=== PATIENT | male | born 1955 | race Caucasian/White ===

== ENCOUNTER 2016-05-08 11:08 | Inpatient (IN) ==
--- NOTE | 2016-05-08 12:09 | Emergency Department Note ---
Disposition Clinical Impression: Anasarca, Hyperglycemia Disposition: Admitted As Inpatient Condition: Good Forms: Work/School Release, ED Satisfaction Letter Abdominal Pain HPI - General Chief Complaint: ED General Medical Stated Complaint: Retaing Fluid Time Seen by Provider: 05/08/16 11:17 Source: patient, family Mode of arrival: ambulatory Limitations: no limitations Nursing Notes Reviewed: Yes Vital Signs Reviewed: Yes - History of Present Illness Pt Subjective Complaint: abdominal pain Onset (ago): week(s) (1) Consistency: constant Location: diffuse Pain Scale: 9 Quality: fullness Radiation: none Migration to: no migration Improves with: nothing Worsens with: rest Context: history of similar episodes Associated symptoms: Reports: other (leg and scrotal edema) Treatments prior to arrival: none - Related Data Previous Rx's Medication Instructions Recorded Sulfamethoxazole/Trimeth DS 1 each PO BID #20 tablet 01/26/16 [Bactrim DS] Allergies Allergy/AdvReac Type Severity Reaction Status Date / Time Antihistamines - Alkylamine Allergy Cough Verified 05/08/16 11:10 codeine Allergy Nausea Verified 05/08/16 11:10 fluticasone [From Flonase] Allergy Nose Bleed Verified 05/08/16 11:10 nitroglycerin Allergy Headache Verified 05/08/16 11:10 [From Nitrostat] rofecoxib [From Vioxx] Allergy Rash Verified 05/08/16 11:10 All systems ED: reviewed and negative except as stated. Constitutional: Denies: fever, chills Respiratory: Denies: cough Gastrointestinal: Denies: vomiting, diarrhea Abdominal Pain PMH - Past Medical History Medical history: Reports: arthritis, cirrhosis, CHF, coronary artery disease, diabetes, GERD, hypertension, liver disease, other Male Surgical History: Reports: cholecystectomy, knee replacement Psychiatric history: Reports: anxiety, depression - Social History Smoking status: Former smoker Alcohol use: Reports: none Drug use: Reports: none Physical Exam - General Limitations: no limitations General appearance: alert, in no apparent distress - Head Head exam: atraumatic, normocephalic, normal inspection - Eye Eye exam: Present: normal appearance, PERRL, EOMI - ENT ENT exam: normal exam, normal oropharynx, mucous membranes moist - Neck Neck exam: Present: normal inspection, full ROM, trachea midline - Respiratory Respiratory exam: Present: normal lung sounds bilaterally - Cardiovascular Cardiovascular exam: Present: regular rate, normal rhythm, normal heart sounds - Abdominal Exam Abdominal exam: Present: distention, normal bowel sounds Abdominal tenderness: Present: diffuse, mild - Expanded Lower Extremity Exam Lower leg exam: Present: other (severe bilat edema with unna boots) - Neurological Exam Neurological exam: Present: alert, oriented X3 - Psychiatric Psychiatric exam: Present: normal affect, normal mood Course Vital Signs Temperature 97.8 F 05/08/16 11:10 Pulse Rate 97 05/08/16 11:10 Respiratory Rate 24 05/08/16 11:10 Blood Pressure 119/69 05/08/16 11:10 O2 Sat by Pulse Oximetry 94 L 05/08/16 11:10 Temperature 97.8 F 05/08/16 11:10 Pulse Rate 97 05/08/16 11:10 Respiratory Rate 24 05/08/16 11:10 Blood Pressure 119/69 05/08/16 11:10 O2 Sat by Pulse Oximetry 94 L 05/08/16 11:10 Oxygen Delivery Oxygen Delivery Room Air Abdominal Pain - Differential Diagnosis Differential Diagnosis: Likely: abdominal pain non-specific, diverticulitis, diverticulosis, endometriosis, gastroenteritis, ischemic bowel, pancreatitis, small bowel obstruction - Medical Records Medical records reviewed: Yes I reviewed the patient's medical records. - Lab Data Lab results reviewed: Yes I reviewed the patient's lab results. Result diagrams: 05/08/16 12:03 05/08/16 12:03 Lab Results 05/08/16 05/08/16 05/08/16 Range/Units 12:03 12:03 12:03 WBC 5.1 (4.3-11.1) K/mcL RBC 2.96 L (4.19-5.50) M/mcL Hgb 8.2 L (12.9-16.9) g/dL Hct 25.1 L (37.5-50.1) % MCV 84.8 (83.0-100.0) fL MCH 27.7 L (28.0-33.3) pg MCHC 32.7 (31.6-35.5) g/dL RDW 15.9 H (11.5-14.5) % Plt Count 120 L (140-400) K/mcL MPV 10.3 (9.4-12.4) fL Immature Gran % 1.0 (0-4) % Seg Neutrophils % 79.2 % Lymphocytes % 6.3 % Monocytes % 11.7 % Eosinophils % 1.4 % Basophils % 0.4 % Neutrophils # 4.0 (1.6-8.9) K/mcL Lymphocytes # 0.3 L (0.6-4.6) K/mcL Monocytes # 0.6 (0.0-1.3) K/mcL Eosinophils # 0.1 (0.0-0.6) K/mcL Basophils # 0.0 (0.0-0.2) K/mcL Immature Plt Fraction 3.1 (1.1-6.1) % PT 16.0 H (9.4-12.1) Seconds INR 1.5 APTT 30.3 (26.0-36.0) Seconds Sodium 118 L* (136-145) mEq/L Potassium 5.0 H (3.5-4.5) mEq/L Chloride 89 L (98-109) mEq/L Carbon Dioxide 21 (19-29) mEq/L BUN 27 H (8-26) mg/dL Creatinine 1.64 H (0.72-1.25) mg/dL Est GFR ( Amer) 52 L (> 60) Est GFR (Non-Af Amer) 43 L (> 60) BUN/Creatinine Ratio 16 (6-26) Glucose 708 H* (70-99) mg/dL Calculated Osmolality 285 (280-300) Calcium 8.8 (8.6-10.8) mg/dL Total Bilirubin 2.2 H (0.2-1.2) mg/dL Direct Bilirubin 1.2 H (0.0-0.5) mg/dL Indirect Bilirubin 1.0 (0.0-1.2) mg/dL AST 33 (5-34) Units/L ALT 33 (0-55) Units/L Alkaline Phosphatase 169 H (38-126) Units/L B-Natriuretic Peptide (0-100) pg/mL Serum Total Protein 7.2 (6.0-8.3) g/dL Albumin 2.3 L (3.5-5.0) g/dL Globulin 4.9 H (2.4-3.5) g/dL Albumin/Globulin Ratio 0.5 L (1.1-2.2) Amylase 45 (25-125) Units/L Lipase 102 H (8-78) Units/L Urine Color (Yellow) Urine Clarity (Clear) Urine pH (5.0-8.0) pH Units Ur Specific Leonard (1.010-1.025) Urine Protein (Neg-Trace) mg/dL Urine Glucose (UA) (Normal) mg/dL Urine Ketones (Negative) mg/dL Urine Blood (Negative) Urine Nitrite (Negative) Urine Bilirubin (Negative) Urine Urobilinogen (Normal) mg/dL Ur Leukocyte Esterase (Negative) Urine Microscopic RBC (0-3) per hpf Urine Microscopic WBC (0-3) per hpf Ur Squamous Epith Cells (None-Few) per lpf Urine Bacteria (None-Few) per hpf Hyaline Casts (None-Few) per lpf Urine Yeast (None Seen) per hpf Ur Culture Indicated? (NO) 05/08/16 05/08/16 Range/Units 12:03 12:06 WBC (4.3-11.1) K/mcL RBC (4.19-5.50) M/mcL Hgb (12.9-16.9) g/dL Hct (37.5-50.1) % MCV (83.0-100.0) fL MCH (28.0-33.3) pg MCHC (31.6-35.5) g/dL RDW (11.5-14.5) % Plt Count (140-400) K/mcL MPV (9.4-12.4) fL Immature Gran % (0-4) % Seg Neutrophils % % Lymphocytes % % Monocytes % % Eosinophils % % Basophils % % Neutrophils # (1.6-8.9) K/mcL Lymphocytes # (0.6-4.6) K/mcL Monocytes # (0.0-1.3) K/mcL Eosinophils # (0.0-0.6) K/mcL Basophils # (0.0-0.2) K/mcL Immature Plt Fraction (1.1-6.1) % PT (9.4-12.1) Seconds INR APTT (26.0-36.0) Seconds Sodium (136-145) mEq/L Potassium (3.5-4.5) mEq/L Chloride (98-109) mEq/L Carbon Dioxide (19-29) mEq/L BUN (8-26) mg/dL Creatinine (0.72-1.25) mg/dL Est GFR ( Amer) (> 60) Est GFR (Non-Af Amer) (> 60) BUN/Creatinine Ratio (6-26) Glucose (70-99) mg/dL Calculated Osmolality (280-300) Calcium (8.6-10.8) mg/dL Total Bilirubin (0.2-1.2) mg/dL Direct Bilirubin (0.0-0.5) mg/dL Indirect Bilirubin (0.0-1.2) mg/dL AST (5-34) Units/L ALT (0-55) Units/L Alkaline Phosphatase (38-126) Units/L B-Natriuretic Peptide 112 H (0-100) pg/mL Serum Total Protein (6.0-8.3) g/dL Albumin (3.5-5.0) g/dL Globulin (2.4-3.5) g/dL Albumin/Globulin Ratio (1.1-2.2) Amylase (25-125) Units/L Lipase (8-78) Units/L Urine Color Yellow (Yellow) Urine Clarity Clear (Clear) Urine pH 6.0 (5.0-8.0) pH Units Ur Specific Leonard 1.030 H (1.010-1.025) Urine Protein Negative (Neg-Trace) mg/dL Urine Glucose (UA) >=1000 H (Normal) mg/dL Urine Ketones Negative (Negative) mg/dL Urine Blood Negative (Negative) Urine Nitrite Negative (Negative) Urine Bilirubin Negative (Negative) Urine Urobilinogen Normal (Normal) mg/dL Ur Leukocyte Esterase Small H (Negative) Urine Microscopic RBC 0-3 (0-3) per hpf Urine Microscopic WBC 30-50 H (0-3) per hpf Ur Squamous Epith Cells Moderate H (None-Few) per lpf Urine Bacteria None Seen (None-Few) per hpf Hyaline Casts None Seen (None-Few) per lpf Urine Yeast Few H (None Seen) per hpf Ur Culture Indicated? YES A (NO) - Radiology Data Radiology results reviewed: Yes I reviewed the patient's radiology results.
[2016-05-08 12:18] LABS: Bilirubin,Urine Negative (Negative); Blood,Urine Negative (Negative); Clarity,Urine Clear (Clear); Color,Urine Yellow (Yellow); Glucose,Urine (UA) >=1000 mg/dL (Normal); Ketones,Urine Negative (Negative); Leukocyte Esterase,Urine Small (Negative); Nitrite,Urine Negative (Negative); Protein,Urine Negative (Neg-Trace); Urobilinogen,Urine Normal (Normal)
[2016-05-08 12:21] LABS: Bacteria,Urine None Seen per hpf (None-Few); Hyaline Casts,Urine None Seen per lpf (None-Few); RBC,Urine 0-3 per hpf (0-3); Squamous Epithelial Cell,Urine Moderate per lpf (None-Few); WBC,Urine 30-50 per hpf (0-3)
[2016-05-08 12:24] LABS: Basophils % 0.4 %; Eosinophils # 0.1 K/mcL (0.0-0.6); Eosinophils % 1.4 %; Hematocrit 25.1 % (37.5-50.1); Hemoglobin 8.2 g/dL (12.9-16.9); Immature Platelets 3.1 % (1.1-6.1); Lymphocytes # 0.3 K/mcL (0.6-4.6); Lymphocytes % 6.3 %; Mean Corpuscular HGB Conc 32.7 g/dL (31.6-35.5); Mean Corpuscular Hemoglobin 27.7 pg (28.0-33.3); Mean Corpuscular Volume 84.8 fL (83.0-100.0); Mean Platelet Volume 10.3 fL (9.4-12.4); Monocytes # 0.6 K/mcL (0.0-1.3); Monocytes % 11.7 %; Platelet Count 120 K/mcL (140-400); Red Blood Count 2.96 M/mcL (4.19-5.50); Red Cell Distribution Width 15.9 % (11.5-14.5); Segmented Neutrophils % 79.2 %
[2016-05-08 12:39] LABS: Yeast,Urine Few per hpf (None Seen)
[2016-05-08 12:40] LABS: INR 1.5
[2016-05-08 12:43] LABS: Activated Partial Thrombo Time 30.3 Seconds (26.0-36.0)
[2016-05-08 12:44] LABS: Albumin 2.3 g/dL (3.5-5.0); Albumin/Globulin Ratio 0.5 (1.1-2.2); Bilirubin,Direct 1.2 mg/dL (0.0-0.5); Bilirubin,Total 2.2 mg/dL (0.2-1.2); Calcium 8.8 mg/dL (8.6-10.8); Globulin 4.9 g/dL (2.4-3.5); Total Protein 7.2 g/dL (6.0-8.3)
[2016-05-08] MEDS ORDERED: Insulin Human Regular 10 UNIT in 0.9 % Sodium Chloride 10 ML IV ONE (13:00)
[2016-05-08] MEDS ORDERED: Insulin LISPRO 300 UNITS/3 ML VIAL SQ STA (14:27)
[2016-05-08] MEDS ORDERED: Insulin Regular, Human 100 UNIT/ML IV PRN (16:29)
[2016-05-08] MEDS ORDERED: *HR* Dextrose 50 % in Water (Syg) 50 ML SYRINGE IVP PRN (16:29)
[2016-05-08] MEDS ORDERED: Insulin Human Regular 100 UNIT in 0.9 % Sodium Chloride 100 ML IVC SCH (16:30)
[2016-05-08] MEDS ORDERED: 0.9 % Sodium Chloride 1,000 ML ONE (17:52)
[2016-05-08 18:36] LABS: Albumin 2.2 g/dL (3.5-5.0); Albumin/Globulin Ratio 0.4 (1.1-2.2); Bilirubin,Total 2.1 mg/dL (0.2-1.2); Potassium 4.6 mEq/L (3.5-4.5); Total Protein 7.2 g/dL (6.0-8.3)
[2016-05-08] MEDS ORDERED: 0.9 % Sodium Chloride 1,000 ML IVC SCH (19:00)
[2016-05-08] MEDS ORDERED: D5% in 0.45% NACL w KCl 20 MEQ/1,000 ML MLS IVC PRN (19:16)
[2016-05-08] MEDS ORDERED: D5% in 0.45% NACL 1,000 ML IVC PRN (19:16)
--- NOTE | 2016-05-08 19:18 | Event Note ---
Date of Encounter: 05/08/16 Time of Encounter: 18:30 I examined this patient and my medical decision-making was reviewed with the Advanced Practice Nurse on 05/08/16. I agree with the documented findings, disposition and treatment plan as described except to the extent set forth below. Mr. Harding is a 60 y/o male who presented to ED due to difficulty breathing and edema. He has a prior history of cirrhosis and ascites. He was at [facility] in the past and says minimal fluid was removed. He now has significantly more edema. He also has DM and his blood sugar was over 700. He feels his edema and other issues are due to Lantus and a recent MRI. Exam Alert. No overt resp distress. Mucus membranes dry Heart reg with 3/6 systolic murmur Lungs diminished but clear Abd distended and taut. No fluid wave but too taut. Nontender Edema to mid chest bilaterally. I/P 1. Hyperosmolar state 2. Hypervolemic hyponatremia (corrected sodium on admit was 125) 3. Massive ascites Further diagnoses and plan as outlined in H&P.
[2016-05-08] MEDS ORDERED: 0.9 % Sodium Chloride w KCl 20 MEQ/1,000 ML MLS IVC PRN (19:30)
[2016-05-08] MEDS ORDERED: 0.9 % Sodium Chloride w KCl 20 MEQ/1,000 ML MLS IVC ONE (19:34)
--- NOTE | 2016-05-08 19:38 | Internal Med History&Physical ---
<Gregoria Jackson - Last Filed: 05/08/16 20:07> Date of Encounter: 05/08/16 Time of Encounter: 17:00 Assessment and Plan (1) Ascites Current visit: Yes Status: Acute 1 she has a history of cirrhosis has been experiencing increase in abdominal girth since discharge from now, was in March. Over the past few days she has been experiencing abdominal pain early satiety shortness of breath his abdomen is taut and distended. He did have a paracentesis in March of 2-1/2 L removed. We will make patient nothing by mouth patient will undergo paracentesis tomorrow per hospitalist team will need to schedule with IR 2 continue with spironolactone as well as Lasix 3 monitor intake and output and daily weights Qualifiers: Ascites type: other type Qualified Code(s): R18.8 - Other ascites (2) Hyperosmolar nonketotic coma in diabetes Current visit: Yes Status: Acute 1 patient presented with blood sugar over 700 sodium 118 no ketones in urine anion gap was a calculated osmolarity 285. She is type II diabetic and has not been compliant with insulin. We will start on insulin drip monitor electrolytes and replace as needed per [facility] protocol. We will administer IV fluids however carefully watch due to patient's ascites (3) Cirrhosis of liver Current visit: Yes Status: Acute 1 patient has a history of cirrhosis of the liver he does have a appointment with pathological technician at [facility] in May. He is experiencing ascites as well as anasarca. Will continue with lactulose as well as Xifaxin. 2 we will monitor ammonia as well as coags 3 we will avoid hepatotoxins 4 continue with beta lactam as well as Lasix Qualifiers: Hepatic cirrhosis type: unspecified hepatic cirrhosis Ascites presence: with ascites Qualified Code(s): K74.60 - Unspecified cirrhosis of liver (4) Venous stasis dermatitis of both lower extremities Current visit: No Status: Chronic 1 as follows wound clinic for venous stasis dermatitis-he will consult wound care continue with wraps for now (5) Anasarca Current visit: Yes Status: Acute 1 patient has anasarca from lower extremities up to chest. We will continue with Lasix and spironolactone (6) DVT prophylaxis Current visit: Yes Status: Acute 1 heparin Internal Medicine - H&P: HPI Chief complaint: Abdominal pain Admitted From: Emergency Dept Plans for Post Hospital Care: Home History of present illness: Mr. Harding is a 60 year old male past history of CHF cirrhosis coronary disease diabetes GERD hypertension. N formation has been obtained from medical records as well as patient. According to patient he has had diagnosis of cirrhosis he has been experiencing ascites appears to been going on for approximately since February of this year. He did undergo a paracentesis at [place] with Dr. monae, which he states that approximately 2-1/2 L were removed. It appears that he does have an outpatient appointment set up with the [facility] hepatology clinic in May. He had a endoscopy at [facility] last in February which he states showed he had varices He does have diabetes. He states that his blood sugar are still high then we will register on his machine. This is going on for approximately one week. He states he takes his insulin however when he was discharged the insulin pens were not marked and he does not know which one her long-acting and short-acting E takes whichever one he thinks is best. Over this past week the patient's abdomen has grown and he has not been able to lie down and has had difficulty breathing and it is very painful. He has also been "retaining fluid"and has anasarca from lower extremities up to chest. He presented with the above complaints. Upon presentation to the ER patient's vital signs are stable he is 94% on 2 L nasal cannula. His lab work did reveal no leukocytosis his sodium was 118 potassium was 5 chloride 89 BUN 2721.6 blood sugar was 708 urine was negative for ketones no UTI noted BNP is 112 amylase 45 lipase 102 albumin 2.3 AST 33 ALT [address] of abdomen and pelvis revealed severe cirrhosis with massive ascites and evidence of portal venous hypertension with findings suggestive of spleeno renal shunt. He was given IV fluids as well as insulin and has been admitted for further workup and evaluation. Presently patient does not appear to be in any respiratory distress she denies any chest pain or abdominal pain at this time. His abdomen is severely distended and taut no fluid wave noted he is anasarca with weeping wounds to his lower extremities bilaterally. She was initiated on IV insulin. He is hemodynamically stable this time I reviewed this case with Dr. Ac who agrees with plan Past Med Surg Social Fam HX - Past Medical History Medical history: arthritis, cirrhosis, CHF, coronary artery disease, diabetes, GERD, hypertension, liver disease, other Psychiatric history: anxiety, depression - Past Surgical History Surgical History: appendectomy, cholecystectomy, other - Social History Smoking Status: Former smoker Smokeless Tobacco Status: No Alcohol use: none Drug use: none - Additional Family History Additional family history: reviewed noncontributory Internal Medicine - H&P: Meds Amiloride/HCTZ 5-50mg [Moduretic 5-50mg] 1 tab PO DAILY 05/08/16 [History] Furosemide [Lasix] 40 mg PO DAILY 05/08/16 [History] Insulin ASPART [Novolog Flexpen] 20 unit SQ BID 05/08/16 [History] Insulin Glargine,Hum.rec.anlog [Lantus Solostar] 35 unit SQ HS 05/08/16 [History ] Insulin Regular U-500 [HumuLIN R U-500] 100 unit SQ BID 05/08/16 [History] Lactulose [Lactulose] 20 ml PO Q6H 05/08/16 [History] Omeprazole [PriLOSEC] 40 mg PO DAILY 05/08/16 [History] Ondansetron [Zofran] 8 mg PO Q12H PRN 05/08/16 [History] Potassium Chloride [K-Tab ER] 20 meq PO DAILY 05/08/16 [History] Rifaximin [Xifaxan] 550 mg PO BID 05/08/16 [History] Spironolactone [Aldactone] 100 mg PO DAILY 05/08/16 [History] Allergies Antihistamines - Alkylamine Allergy (Verified 05/08/16 11:10) Cough codeine Allergy (Verified 05/08/16 11:10) Nausea fluticasone [From Flonase] Allergy (Verified 05/08/16 11:10) Nose Bleed nitroglycerin [From Nitrostat] Allergy (Verified 05/08/16 11:10) Headache rofecoxib [From Vioxx] Allergy (Verified 05/08/16 11:10) Rash All Systems PM: A 10-system review of systems was performed and is negative for pertinent findings except as documented above in the HPI. - Constitutional Constitutional: anorexia, fatigue, weakness, weight gain - Cardiovascular Cardiovascular ROS IM: edema, no chest pain, no diaphoresis, no dyspnea, no lightheadedness, no palpitations, no syncope - Respiratory Respiratory: dyspnea, dyspnea on exertion - Gastrointestinal Gastrointestinal: abdominal pain, early satiety, nausea - Musculoskeletal Musculoskeletal ROS IM: no numbness, no tingling - Integumentary Integumentary IM: non-healing lesions - Neurological Neurological ROS: no confusion, no convulsions, no focal weakness, no numbness, no tingling, no tremor(s) - Constitutional Vitals: Temp Pulse Resp BP Pulse Ox 97.7 F 90 18 130/69 95 05/08/16 16:53 05/08/16 16:53 05/08/16 16:53 05/08/16 16:53 05/08/16 16:53 General appearance: Present: A&O X 3 Exam: Appears chronically ill face gaunt - Head Head exam: Present: atraumatic, normocephalic - Eye Eye exam: Present: PERRL, conjuntiva pink, sclera anicteric Pupils: Present: PERRL - Neck Neck exam general surgery: Present: supple, trachea midline. Absent: lymphadenopathy - Respiratory Respiratory exam: Present: CTAB. Absent: accessory muscle use, rales, rhonchi, wheezes - Cardiovascular Cardiovascular exam: Present: RRR, +S1, +S2, systolic murmur. Absent: diastolic murmur, gallop, rubs - Expanded Cardiovascular Exam Type of murmur: Present: systolic Intensity: 3/6 - GI/Abdominal GI/Abdominal exam: Present: distended, firm. Absent: tenderness - Extremities Exam Extremities exam: Present: pedal edema (Lower extremities anasarca with weeping edema open sores), warm, radial pulses palpable and symetrical. Absent: calf tenderness, cyanotic - Neurological Exam Neurological exam: Present: CN II-XII intact, oriented X3, no focal deficits. Absent: pronater drift, facial droop, speech deficit - Skin Skin exam: Present: erythema, vesicles Internal Med - H&P Results - Labs CBC & Chem 7: 05/08/16 12:03 05/08/16 19:35 Labs: BMP 05/08/16 17:40 Sodium 121 L Potassium 4.6 H Chloride 92 L Carbon Dioxide 20 BUN 26 Creatinine 1.56 H Glucose 502 H* Calcium 9.0 Liver Function 05/08/16 Range/Units 17:40 Total Bilirubin 2.1 H (0.2-1.2) mg/dL AST 35 H (5-34) Units/L ALT 33 (0-55) Units/L Alkaline Phosphatase 168 H (38-126) Units/L Albumin 2.2 L (3.5-5.0) g/dL - Diagnostic Studies Other Images Additional comments: Abdomen/Pelvis CT 05/08/16 12:07 IMPRESSION: 1. Severe cirrhosis with massive ascites. Evidence of portal venous hypertension (varices and splenomegaly) with findings suggesting a splenorenal shunt. 2. Findings suggesting anemia. Right hip avascular necrosis with no articular collapse. D/ / 05/08/2016 13:07:01 Darryn Ellis MD / charu Interpreting Provider: Darryn Ellis MD <Bethel Ac - Last Filed: 05/10/16 18:58> Internal Medicine - H&P: HPI History of present illness: Mr. Harding is a 60 year old male All Systems PM: A 10-system review of systems was performed and is negative for pertinent findings except as documented above in the HPI. - Constitutional Vitals: Temp Pulse Resp BP Pulse Ox 98.5 F 88 15 117/60 93 L 05/10/16 16:30 05/10/16 16:30 05/10/16 16:30 05/10/16 16:30 05/10/16 16:30 Internal Med - H&P Results - Labs CBC & Chem 7: 05/10/16 04:06 05/10/16 04:06 Labs: Short CBC 05/10/16 Range/Units 04:06 WBC 9.4 (4.3-11.1) K/mcL Hgb 8.4 L (12.9-16.9) g/dL Hct 25.3 L (37.5-50.1) % Plt Count 128 L (140-400) K/mcL Neutrophils # 7.7 (1.6-8.9) K/mcL BMP 05/10/16 04:06 Sodium 121 L Potassium 4.9 H Chloride 93 L Carbon Dioxide 20 BUN 34 H Creatinine 1.72 H Glucose 224 H Calcium 8.8 - ABG Interpretation ABG results: 05/09/16 01:01 VBG pH 7.40 VBG pCO2 41 VBG pO2 55 H VBG HCO3 25.4 - Impressions ITS Impressions Paracentesis Ultrasound 05/10/16 16:49 IMPRESSION: Successful ultrasound guided paracentesis. D/ / Mango Cooper MD / Mango Cooper MD Interpreting Provider: Mango Cooper MD - Attending Attestation Please see event note of this same date for attestation.
[2016-05-08 19:59] LABS: Magnesium 1.9 mg/dL (1.6-2.6); Potassium 4.1 mEq/L (3.5-4.5)
[2016-05-08] MEDS ORDERED: Naloxone 0.4 MG/ML INJ IVP PRN (20:02)
[2016-05-08] MEDS: *HR* OxyCODONE/APAP 5/325 TABLET PO PRN (20:03)
[2016-05-08] MEDS: (Rifaximin [Xifaxan] 550 MG) PO SCH (21:02)
[2016-05-08] MEDS: Lactulose Oral Soln 20 GM/30 ML UDC RC SCH (23:34)
[2016-05-09 01:10] LABS: Basophils # 0.1 K/mcL (0.0-0.2); Basophils % 0.5 %; Eosinophils # 0.3 K/mcL (0.0-0.6); Eosinophils % 2.9 %; Hemoglobin 8.6 g/dL (12.9-16.9); Immature Granulocytes % 0.5 % (0-4); Lymphocytes # 0.7 K/mcL (0.6-4.6); Lymphocytes % 6.7 %; Mean Corpuscular HGB Conc 33.1 g/dL (31.6-35.5); Mean Corpuscular Hemoglobin 27.5 pg (28.0-33.3); Mean Corpuscular Volume 83.1 fL (83.0-100.0); Mean Platelet Volume 9.4 fL (9.4-12.4); Monocytes # 1.3 K/mcL (0.0-1.3); Monocytes % 12.3 %; Neutrophils # 7.9 K/mcL (1.6-8.9); Platelet Count 171 K/mcL (140-400); Red Blood Count 3.13 M/mcL (4.19-5.50); Red Cell Distribution Width 15.8 % (11.5-14.5); Segmented Neutrophils % 77.1 %; VBG HCO3 25.4 mEq/L (21-27); VBG PH 7.4 pH Units (7.32-7.42)
[2016-05-09] MEDS: Ondansetron 4 MG/2 ML VIAL IVP PRN (01:13)
[2016-05-09 01:23] LABS: Calcium 9.3 mg/dL (8.6-10.8); Potassium 4.2 mEq/L (3.5-4.5)
[2016-05-09] MEDS ORDERED: *HR* Dextrose 50 % in Water (Syg) 50 ML SYRINGE IVP PRN (02:33)
[2016-05-09] MEDS ORDERED: D5% in Water 1,000 ML IVC PRN (02:33)
[2016-05-09] MEDS ORDERED: Dextrose Gel 15 GM PO PRN ×2 (02:33)
[2016-05-09] MEDS: Insulin DETEMIR 100 UNIT/ML X5UNITS SQ SCH ×2 (03:09→21:07)
[2016-05-09 06:15] LABS: Potassium 4.6 mEq/L (3.5-4.5)
[2016-05-09] MEDS: Lactulose Oral Soln 20 GM/30 ML UDC RC SCH ×3 (06:18→17:13)
[2016-05-09] MEDS: *HR* Heparin 5,000 UNIT/ML VIAL SQ SCH ×2 (06:19→17:13)
[2016-05-09] MEDS: (Rifaximin [Xifaxan] 550 MG) PO SCH ×2 (07:48→21:08)
[2016-05-09] MEDS: Insulin LISPRO 300 UNITS/3 ML VIAL SQ SCH ×4 (07:50→21:06)
[2016-05-09] MEDS ORDERED: Furosemide 40 MG/4 ML VIAL IVP SCH (09:00)
[2016-05-09] MEDS: Cefotaxime 2,000 MG in D5% in Water 100 ML IVPB SCH ×2 (11:36→20:21)
[2016-05-09] MEDS: *HR* OxyCODONE/APAP 5/325 TABLET PO PRN ×2 (11:40→19:43)
--- NOTE | 2016-05-09 14:24 | Internal Med Progress Note ---
Date of Encounter: 05/09/16 Time of Encounter: 18:35 - Assessment and plan (1) Venous stasis dermatitis of both lower extremities Current Visit: No Status: Chronic (2) Hyperosmolar nonketotic coma in diabetes Current Visit: Yes Status: Acute (3) Cirrhosis of liver Current Visit: Yes Status: Acute Qualifiers: Hepatic cirrhosis type: unspecified hepatic cirrhosis Ascites presence: with ascites Qualified Code(s): K74.60 - Unspecified cirrhosis of liver (4) Ascites Current Visit: Yes Status: Acute Assessment and plan: 60 y/o male with pmh of cirrhosis, GERD,HTN, CAD admitted to the hospital with complaints of abdominal distension. Patient has significant ascitis with exam and reports having underwent paracentesis about a month ago at another facility. # Cirrhosis with ascitis: Ascitis, no features of encephalopathy or SBP at this time. Started empirically on cefotaxime. On lasix and aldactone.IR cosnutled for IR guided paracentesis. # UTI: Urine positive with pending c/s. On antibiotics as above # Hyperosmolar nonketotic state: Bg are better controlled. On Insulin. Monitor BGM AC and HS. # B/l LE swelling: In setting of volume overlaod, compression from ascitis. On lasix as above # DVT prophylaxis: Sub Q heparin Qualifiers: Ascites type: other type Qualified Code(s): R18.8 - Other ascites - Time Spent With Patient 25 - 35 minutes - Constitutional Vitals: Temp Pulse Resp BP Pulse Ox 98.0 F 81 17 115/67 94 L 05/09/16 11:25 05/09/16 11:42 05/09/16 11:25 05/09/16 11:25 05/09/16 11:25 General appearance: Present: A&O X 3 Internal Medicine: Result - Labs CBC & Chem 7: 05/10/16 04:06 05/10/16 04:06 Labs: Short CBC 05/09/16 Range/Units 01:01 WBC 10.2 D (4.3-11.1) K/mcL Hgb 8.6 L (12.9-16.9) g/dL Hct 26.0 L (37.5-50.1) % Plt Count 171 (140-400) K/mcL Neutrophils # 7.9 (1.6-8.9) K/mcL BMP 05/09/16 05/09/16 01:01 04:38 Sodium 124 L 123 L Potassium 4.2 4.6 H Chloride 95 L 93 L Carbon Dioxide 21 20 BUN 28 H Creatinine 1.53 H Glucose 129 H Calcium 9.3 - ABG Interpretation ABG results: PT/INR, D-dimer PT 16.0 Seconds (9.4-12.1) H 05/08/16 12:03 Consult Discharge Plan - Plan Referrals: Valery Wallace MD [Primary Care Provider] -
[2016-05-10] MEDS: Lactulose Oral Soln 20 GM/30 ML UDC RC SCH ×4 (00:17→17:41)
[2016-05-10] MEDS: Ondansetron 4 MG/2 ML VIAL IVP PRN (00:57)
[2016-05-10] MEDS: *HR* OxyCODONE/APAP 5/325 TABLET PO PRN ×2 (03:55→16:40)
[2016-05-10] MEDS: Cefotaxime 2,000 MG in D5% in Water 100 ML IVPB SCH ×3 (03:55→22:04)
[2016-05-10 04:44] LABS: Basophils % 0.2 %; Eosinophils # 0.1 K/mcL (0.0-0.6); Eosinophils % 1.3 %; Hematocrit 25.3 % (37.5-50.1); Hemoglobin 8.4 g/dL (12.9-16.9); Immature Granulocytes % 0.3 % (0-4); Lymphocytes # 0.5 K/mcL (0.6-4.6); Lymphocytes % 4.9 %; Mean Corpuscular HGB Conc 33.2 g/dL (31.6-35.5); Mean Corpuscular Hemoglobin 27.9 pg (28.0-33.3); Mean Corpuscular Volume 84.1 fL (83.0-100.0); Mean Platelet Volume 10.2 fL (9.4-12.4); Monocytes % 11.1 %; Neutrophils # 7.7 K/mcL (1.6-8.9); Platelet Count 128 K/mcL (140-400); Red Blood Count 3.01 M/mcL (4.19-5.50); Segmented Neutrophils % 82.2 %
[2016-05-10 04:58] LABS: Calcium 8.8 mg/dL (8.6-10.8); Potassium 4.9 mEq/L (3.5-4.5)
[2016-05-10] MEDS: *HR* Heparin 5,000 UNIT/ML VIAL SQ SCH ×2 (05:13→17:41)
[2016-05-10] MEDS: Insulin LISPRO 300 UNITS/3 ML VIAL SQ SCH ×4 (08:55→22:05)
[2016-05-10] MEDS: Furosemide 40 MG/4 ML VIAL IVP SCH ×2 (08:55→22:03)
[2016-05-10] MEDS: (Rifaximin [Xifaxan] 550 MG) PO SCH (08:55)
[2016-05-10] MEDS ORDERED: Albumin 25% 25gram/100mL 25 GM/100 ML IV.SOLN IVPB ONE ×2 (13:46→18:52)
[2016-05-10 14:43] LABS: Appearance of Body Fluid Clear (Clear); Volume of Body Fluid 50 mL
[2016-05-10 14:49] LABS: LDH,Peritoneal Fluid 34 Units/L (No Ref Range); Total Protein,Peritoneal Fluid < 0.8 g/dL (No Ref Range)
--- NOTE | 2016-05-10 17:26 | Internal Med Progress Note ---
Date of Encounter: 05/10/16 Time of Encounter: 17:23 - Assessment and plan (1) Venous stasis dermatitis of both lower extremities Current Visit: No Status: Chronic (2) Hyperosmolar nonketotic coma in diabetes Current Visit: Yes Status: Acute (3) Cirrhosis of liver Current Visit: Yes Status: Acute Qualifiers: Hepatic cirrhosis type: unspecified hepatic cirrhosis Ascites presence: with ascites Qualified Code(s): K74.60 - Unspecified cirrhosis of liver (4) Ascites Current Visit: Yes Status: Acute Assessment and plan: 60 y/o male with pmh of cirrhosis, GERD, HTN, CAD admitted to the hospital with complaints of abdominal distension. Patient has significant ascitis with exam and reports having underwent paracentesis about a month ago at another facility. 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 Hep C panel pending. No features of encephalopathy or SBP at this time. Started empirically on cefotaxime. On lasix and aldactone. Paracentesis done today with removal of 9 l of fluid. Albumin given post procedure. No features on encephalopathy. Ascitic fluid sent for analysis and c/s. # UTI: Urine positive with pending c/s. On antibiotics as above # Hyperosmolar nonketotic state: BG are better controlled. On Insulin. Monitor BGM AC and HS. # B/l LE swelling: In setting of volume overload, compression from ascitis. On lasix as above. # DVT prophylaxis: Sub Q heparin. Monitor platelets closely Qualifiers: Ascites type: other type Qualified Code(s): R18.8 - Other ascites - Time Spent With Patient 25 - 35 minutes - Subjective Interval history: Patient seen and examine at bedside. he underwent paracentesis today with removal of 9 l of fluid. Reports feeling nauseous. Appetite better. Denies any other complaints. - Constitutional Vitals: Temp Pulse Resp BP Pulse Ox 97.9 F 88 16 112/54 94 L 05/10/16 11:10 05/10/16 14:10 05/10/16 11:10 05/10/16 14:10 05/10/16 14:10 General appearance: Present: A&O X 3 - Head Head exam: Present: atraumatic, normocephalic - Eye Eye exam: Present: PERRL, conjuntiva pink, sclera anicteric Pupils: Present: PERRL - Neck Neck exam general surgery: Present: supple, trachea midline. Absent: lymphadenopathy - Respiratory Respiratory exam: Present: CTAB. Absent: accessory muscle use, rales, rhonchi, wheezes - Cardiovascular Cardiovascular exam: Present: RRR, +S1, +S2. Absent: diastolic murmur, gallop, rubs, systolic murmur - GI/Abdominal GI/Abdominal exam: Present: normal bowel sounds, soft, no peritoneal signs. Absent: distended, tenderness - Extremities Exam Extremities exam: Present: warm, radial pulses palpable and symetrical. Absent : calf tenderness, cyanotic, pedal edema - Neurological Exam Neurological exam: Present: CN II-XII intact, oriented X3, no focal deficits. Absent: pronater drift, facial droop, speech deficit - Skin Skin exam: Present: dry, intact Internal Medicine: Result - Labs CBC & Chem 7: 05/10/16 04:06 05/10/16 04:06 Labs: Short CBC 05/10/16 Range/Units 04:06 WBC 9.4 (4.3-11.1) K/mcL Hgb 8.4 L (12.9-16.9) g/dL Hct 25.3 L (37.5-50.1) % Plt Count 128 L (140-400) K/mcL Neutrophils # 7.7 (1.6-8.9) K/mcL BMP 05/10/16 04:06 Sodium 121 L Potassium 4.9 H Chloride 93 L Carbon Dioxide 20 BUN 34 H Creatinine 1.72 H Glucose 224 H Calcium 8.8 - ABG Interpretation ABG results: PT/INR, D-dimer PT 16.0 Seconds (9.4-12.1) H 05/08/16 12:03 - Impressions Impressions Paracentesis Ultrasound 05/10/16 16:49 IMPRESSION: Successful ultrasound guided paracentesis. D/ / Mango Cooper MD / Mango Cooper MD Interpreting Provider: Mango Cooper MD Consult Discharge Plan - Plan Referrals: Valery Wallace MD [Primary Care Provider] - 05/18/16 11:00 am
[2016-05-10] MEDS: Insulin DETEMIR 100 UNIT/ML X5UNITS SQ SCH (22:04)
[2016-05-11] MEDS: Lactulose Oral Soln 20 GM/30 ML UDC RC SCH ×4 (00:03→17:21)
[2016-05-11] MEDS: Cefotaxime 2,000 MG in D5% in Water 100 ML IVPB SCH ×3 (04:46→21:48)
[2016-05-11] MEDS: *HR* Heparin 5,000 UNIT/ML VIAL SQ SCH ×2 (06:03→17:21)
[2016-05-11 06:10] LABS: Basophils % 0.2 %; Hemoglobin 7.1 g/dL (12.9-16.9); Mean Corpuscular Hemoglobin 27.4 pg (28.0-33.3); Red Blood Count 2.59 M/mcL (4.19-5.50)
[2016-05-11 06:12] LABS: Eosinophils # 0.1 K/mcL (0.0-0.6); Eosinophils % 3.1 %; Hematocrit 21.7 % (37.5-50.1); Immature Granulocytes % 0.7 % (0-4); Lymphocytes # 0.4 K/mcL (0.6-4.6); Lymphocytes % 8.4 %; Mean Corpuscular HGB Conc 32.7 g/dL (31.6-35.5); Mean Corpuscular Volume 83.8 fL (83.0-100.0); Mean Platelet Volume 9.6 fL (9.4-12.4); Monocytes # 0.6 K/mcL (0.0-1.3); Monocytes % 13.3 %; Neutrophils # 3.1 K/mcL (1.6-8.9); Red Cell Distribution Width 15.6 % (11.5-14.5); Segmented Neutrophils % 74.3 %
[2016-05-11 06:13] LABS: Platelet Count 73 K/mcL (140-400)
[2016-05-11 06:25] LABS: Calcium 8.3 mg/dL (8.6-10.8); Potassium 4.8 mEq/L (3.5-4.5)
[2016-05-11 06:44] LABS: Platelet Estimate Decreased (Normal)
[2016-05-11] MEDS: Furosemide 40 MG/4 ML VIAL IVP SCH ×2 (08:26→21:45)
[2016-05-11] MEDS: Insulin LISPRO 300 UNITS/3 ML VIAL SQ SCH ×5 (08:27→21:47)
[2016-05-11] MEDS: (Rifaximin [Xifaxan] 550 MG) PO SCH ×3 (08:29→21:48)
--- NOTE | 2016-05-11 12:52 | Internal Med Progress Note ---
Date of Encounter: 05/11/16 Time of Encounter: 16:43 - Assessment and plan (1) Venous stasis dermatitis of both lower extremities Current Visit: No Status: Chronic (2) Hyperosmolar nonketotic coma in diabetes Current Visit: Yes Status: Acute (3) Cirrhosis of liver Current Visit: Yes Status: Acute Qualifiers: Hepatic cirrhosis type: unspecified hepatic cirrhosis Ascites presence: with ascites Qualified Code(s): K74.60 - Unspecified cirrhosis of liver (4) Ascites Current Visit: Yes Status: Acute Assessment and plan: 60 y/o male with pmh of cirrhosis, GERD, HTN, CAD admitted to the hospital with complaints of abdominal distension. Patient has significant ascitis with exam and reports having underwent paracentesis about a month ago at another facility. 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 Hep C panel pending. No features of encephalopathy or SBP at this time. Started empirically on cefotaxime. On lasix and aldactone. Paracentesis done 05/10 with removal of 9 l of fluid. Albumin given post procedure. No features on encephalopathy. Ascitic fluid available results negative for infection. c/s pending. # UTI: Urine positive with negative c/s. On antibiotics as above to cover for possible SBP and UTI # Hyperosmolar nonketotic state: BG are better controlled. On Insulin Levemir and SSI Added premeal today. Increased Levemir to BID dosing. Monitor BGM AC and HS. Pt was on U500 20 units BID per records, which is currently held. 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 On lasix as above. # DVT prophylaxis: Sub Q heparin. Monitor platelets closely Qualifiers: Ascites type: other type Qualified Code(s): R18.8 - Other ascites - Time Spent With Patient 25 - 35 minutes - Subjective Interval history: Patient seen and examine at bedside. Reports feeling better following paracentesis. Abdominal distension and pain better. No nausea/vomiting - Constitutional Vitals: Temp Pulse Resp BP Pulse Ox 98.1 F 83 18 117/60 95 05/11/16 10:49 05/11/16 11:58 05/11/16 10:49 05/11/16 10:49 05/11/16 10:49 General appearance: Present: A&O X 3 - Head Head exam: Present: atraumatic, normocephalic - Eye Eye exam: Present: PERRL, conjuntiva pink, sclera anicteric Pupils: Present: PERRL - Neck Neck exam general surgery: Present: supple, trachea midline. Absent: lymphadenopathy - Respiratory Respiratory exam: Present: CTAB. Absent: accessory muscle use, rales, rhonchi, wheezes - Cardiovascular Cardiovascular exam: Present: RRR, +S1, +S2. Absent: diastolic murmur, gallop, rubs, systolic murmur - GI/Abdominal GI/Abdominal exam: Present: distended, normal bowel sounds, soft, no peritoneal signs. Absent: guarding, tenderness - Extremities Exam Extremities exam: Present: warm, radial pulses palpable and symetrical. Absent : calf tenderness, cyanotic, pedal edema - Neurological Exam Neurological exam: Present: CN II-XII intact, oriented X3, no focal deficits. Absent: pronater drift, facial droop, speech deficit - Skin Skin exam: Present: dry, intact Internal Medicine: Result - Labs CBC & Chem 7: 05/11/16 13:26 05/11/16 05:47 Labs: Short CBC 05/11/16 Range/Units 05:47 WBC 4.2 L D (4.3-11.1) K/mcL Hgb 7.1 L (12.9-16.9) g/dL Hct 21.7 L (37.5-50.1) % Plt Count 73 L (140-400) K/mcL Neutrophils # 3.1 (1.6-8.9) K/mcL BMP 05/11/16 05:47 Sodium 120 L* Potassium 4.8 H Chloride 91 L Carbon Dioxide 24 BUN 39 H Creatinine 1.72 H Glucose 272 H Calcium 8.3 L - ABG Interpretation ABG results: PT/INR, D-dimer PT 16.0 Seconds (9.4-12.1) H 05/08/16 12:03 - Impressions Impressions Paracentesis Ultrasound 05/10/16 16:49 IMPRESSION: Successful ultrasound guided paracentesis. D/ / Mango Cooper MD / Mango Cooper MD Interpreting Provider: Mango Cooper MD Consult Discharge Plan - Plan Referrals: Valery Wallace MD [Primary Care Provider] - 05/18/16 11:00 am
[2016-05-11 13:34] LABS: Hematocrit 22.7 % (37.5-50.1); Hemoglobin 7.5 g/dL (12.9-16.9)
[2016-05-11] MEDS ORDERED: Insulin DETEMIR 100 UNIT/ML X5UNITS SQ ONE (16:22)
[2016-05-11] MEDS ORDERED: Insulin DETEMIR 100 UNIT/ML X5UNITS SQ SCH (21:00)
[2016-05-12] MEDS: Lactulose Oral Soln 20 GM/30 ML UDC RC SCH ×5 (00:39→23:59)
[2016-05-12] MEDS: Cefotaxime 2,000 MG in D5% in Water 100 ML IVPB SCH ×3 (04:12→20:57)
[2016-05-12 05:48] LABS: Red Cell Distribution Width 15.6 % (11.5-14.5)
[2016-05-12 05:50] LABS: Basophils % 0.2 %; Eosinophils # 0.1 K/mcL (0.0-0.6); Eosinophils % 1.6 %; Hematocrit 20.7 % (37.5-50.1); Hemoglobin 7.1 g/dL (12.9-16.9); Immature Granulocytes % 0.4 % (0-4); Lymphocytes # 0.5 K/mcL (0.6-4.6); Lymphocytes % 9.9 %; Mean Corpuscular HGB Conc 34.3 g/dL (31.6-35.5); Mean Corpuscular Hemoglobin 28.2 pg (28.0-33.3); Mean Corpuscular Volume 82.1 fL (83.0-100.0); Mean Platelet Volume 10.1 fL (9.4-12.4); Monocytes # 0.6 K/mcL (0.0-1.3); Monocytes % 13.1 %; Red Blood Count 2.52 M/mcL (4.19-5.50); Segmented Neutrophils % 74.8 %
[2016-05-12 05:52] LABS: Neutrophils # 3.7 K/mcL (1.6-8.9)
[2016-05-12 05:53] LABS: Platelet Count 73 K/mcL (140-400)
[2016-05-12 06:08] LABS: Calcium 8.1 mg/dL (8.6-10.8); Magnesium 1.8 mg/dL (1.6-2.6); Potassium 4.8 mEq/L (3.5-4.5)
[2016-05-12] MEDS: *HR* Heparin 5,000 UNIT/ML VIAL SQ SCH ×2 (06:15→16:53)
[2016-05-12 06:25] LABS: Platelet Estimate Decreased (Normal)
[2016-05-12] MEDS: (Rifaximin [Xifaxan] 550 MG) PO SCH (07:48)
[2016-05-12] MEDS: Insulin LISPRO 300 UNITS/3 ML VIAL SQ SCH ×6 (08:25→16:55)
[2016-05-12] MEDS: Furosemide 40 MG/4 ML VIAL IVP SCH ×2 (08:25→22:39)
[2016-05-12] MEDS: Insulin DETEMIR 100 UNIT/ML X5UNITS SQ SCH ×2 (08:35→22:39)
--- NOTE | 2016-05-12 14:49 | Internal Med Progress Note ---
Date of Encounter: 05/12/16 Time of Encounter: 14:43 - Assessment and plan (1) Venous stasis dermatitis of both lower extremities Current Visit: No Status: Chronic (2) Hyperosmolar nonketotic coma in diabetes Current Visit: Yes Status: Acute (3) Cirrhosis of liver Current Visit: Yes Status: Acute Qualifiers: Hepatic cirrhosis type: unspecified hepatic cirrhosis Ascites presence: with ascites Qualified Code(s): K74.60 - Unspecified cirrhosis of liver (4) DVT prophylaxis Current Visit: Yes Status: Acute (5) Ascites Current Visit: Yes Status: Acute Assessment and plan: 60 y/o male with pmh of cirrhosis, GERD, HTN, CAD admitted to the hospital with complaints of abdominal distension. Patient has significant ascitis with exam and reports having underwent paracentesis about a month ago at another facility. 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 Hep C panel pending. No features of encephalopathy or SBP at this time. empirically on cefotaxime. On lasix and aldactone. Paracentesis done 05/10 with removal of 9 l of fluid. Albumin given post procedure. No features on encephalopathy. Ascitic fluid available results negative for infection. c/s pending. # UTI: Urine positive with negative c/s. On antibiotics as above to cover for possible SBP and UTI # Hyperosmolar nonketotic state: Hyperglycemia persists with last FS above 400. Increased Levemir and Lispro dosing and increased sliding scale insulin algorithm to high dose. Monitor BG AC and HS. Pt was on U500 20 units BID per records, which is currently held. 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 Pt asked to bring his home insulin as he states his blood glucose is better controlled with U500. # B/l LE swelling: In setting of volume overload, compression from ascitis. On lasix as above. # DVT prophylaxis: Sub Q heparin. Monitor platelets closely Qualifiers: Ascites type: other type Qualified Code(s): R18.8 - Other ascites - Subjective Interval history: Pt seen and examined at bedside. Reports of feeling better but noted to have persistently elevated BG. States he uses U500 at home and will get someone to bring it to the hospital. No overnight issues reported. - Constitutional Vitals: Temp Pulse Resp BP Pulse Ox 98.2 F 80 18 106/62 94 L 05/12/16 11:31 05/12/16 12:05 05/12/16 11:31 05/12/16 11:31 05/12/16 11:31 General appearance: Present: A&O X 3, morbidly obese, no acute distress - Head Head exam: Present: atraumatic, normocephalic - Eye Eye exam: Present: conjuntiva pink, sclera anicteric - Respiratory Respiratory exam: Present: CTAB. Absent: respiratory distress, wheezes - Cardiovascular Cardiovascular exam: Present: RRR, +S1, +S2. Absent: diastolic murmur, gallop, rubs, systolic murmur - GI/Abdominal GI/Abdominal exam: Present: distended (ascites), normal bowel sounds, no peritoneal signs. Absent: tenderness - Extremities Exam Extremities exam: Present: pedal edema (bilateral lower extremity edema), warm, radial pulses palpable and symetrical. Absent: calf tenderness - Neurological Exam Neurological exam: Present: alert, oriented X3 Internal Medicine: Result - Labs CBC & Chem 7: 05/12/16 05:26 05/12/16 05:26 Labs: Short CBC 05/12/16 Range/Units 05:26 WBC 4.9 (4.3-11.1) K/mcL Hgb 7.1 L (12.9-16.9) g/dL Hct 20.7 L (37.5-50.1) % Plt Count 73 L (140-400) K/mcL Neutrophils # 3.7 (1.6-8.9) K/mcL BMP 05/12/16 05:26 Sodium 119 L* Potassium 4.8 H Chloride 92 L Carbon Dioxide 24 BUN 44 H Creatinine 1.54 H Glucose 302 H Calcium 8.1 L - ABG Interpretation ABG results: PT/INR, D-dimer PT 16.0 Seconds (9.4-12.1) H 05/08/16 12:03 Consult Discharge Plan - Plan Referrals: Valery Wallace MD [Primary Care Provider] - 05/18/16 11:00 am
[2016-05-12] MEDS ORDERED: Insulin LISPRO 300 UNITS/3 ML VIAL SQ SCH (15:09)
[2016-05-12] MEDS ORDERED: *HR* OxyCODONE Immed Rel 5 MG TABLET PO PRN (16:00)
[2016-05-12] MEDS: Ondansetron 4 MG/2 ML VIAL IVP PRN (17:17)
[2016-05-12] MEDS ORDERED: 0.9 % Sodium Chloride 500 ML ONE (18:49)
[2016-05-12] MEDS ORDERED: 0.9 % Sodium Chloride 1,000 ML ONE (18:54)
[2016-05-12] MEDS ORDERED: 0.9 % Sodium Chloride 500 ML IVC ONE (18:57)
[2016-05-12] MEDS ORDERED: 0.9 % Sodium Chloride 1,000 ML IVC SCH (19:00)
[2016-05-12 19:15] LABS: Basophils % 0.3 %; Eosinophils # 0.1 K/mcL (0.0-0.6); Eosinophils % 1.3 %; Hemoglobin 7.4 g/dL (12.9-16.9); Immature Granulocytes % 0.4 % (0-4); Lymphocytes # 0.8 K/mcL (0.6-4.6); Lymphocytes % 8.1 %; Mean Corpuscular HGB Conc 33.6 g/dL (31.6-35.5); Mean Corpuscular Hemoglobin 27.8 pg (28.0-33.3); Mean Corpuscular Volume 82.7 fL (83.0-100.0); Mean Platelet Volume 9.6 fL (9.4-12.4); Monocytes # 1.4 K/mcL (0.0-1.3); Monocytes % 13.8 %; Neutrophils # 7.6 K/mcL (1.6-8.9); Platelet Count 134 K/mcL (140-400); Red Blood Count 2.66 M/mcL (4.19-5.50); Red Cell Distribution Width 15.9 % (11.5-14.5); Segmented Neutrophils % 76.1 %
[2016-05-12 19:22] LABS: INR 1.4; Prothrombin Time 15.7 Seconds (9.4-12.1)
[2016-05-12] MEDS: *HR* Insulin Regular U-500 500 UNIT/ML SQ SCH (19:24)
[2016-05-12 19:25] LABS: Activated Partial Thrombo Time 36.5 Seconds (26.0-36.0)
[2016-05-12 19:27] LABS: Calcium 8.2 mg/dL (8.6-10.8); Potassium 4.8 mEq/L (3.5-4.5)
--- NOTE | 2016-05-12 19:31 | Event Note ---
Date of Encounter: 05/12/16 Time of Encounter: 19:24 A rapid response was called at 6:40 PM for evaluation of this patient with large amount of bleeding. On arrival the patient is in bed, appears lethargic and pale. The history provided by the nurse as the patient was sitting on the commode and there was a large amount of blood and blood clots on the floor underneath him. He was moved to the bed. The commode had normal stool material and no blood. It appears that the bleeding is originating from the right collazo wound. He has a dressing covering both lower legs. The patient is awake, can state his name but is minimally interactive. She appears lethargic. Heart is regular rhythm, S1-S2. Lungs are clear bilaterally. Abdomen is distended with positive wave sign. Extremities with 2+ pitting edema and chronic stasis changes. Right collazo has a wound of 2 cm in length and 0.5 cm deep tunnels under the skin about 2 cm. Apparently this wound was responsible for the large amount of bleeding noted at the foot of the commode. At this time the wound is not bleeding. We have cleaned up the right lower extremity wound and explored and there is no active bleeding, the clots have been removed. We redressed the leg. I will obtain stat CBC, BMP and coags. His blood pressure is 90/60 and heart rate in the mid 90s. His hemoglobin this morning was 7.1. I will transfuse 2 units PRBCs due to large active bleeding. I have endorsed this patient to the night team. Currently the patient appears hemodynamically stable.
[2016-05-12] MEDS: RIFAXIMIN 200 MG PO SCH (22:40)
[2016-05-13] MEDS: *HR* OxyCODONE Immed Rel 5 MG TABLET PO PRN ×3 (00:25→16:19)
[2016-05-13 05:22] LABS: Basophils % 0.2 %; Eosinophils # 0.2 K/mcL (0.0-0.6); Eosinophils % 1.3 %; Hematocrit 24.3 % (37.5-50.1); Immature Granulocytes % 0.8 % (0-4); Lymphocytes % 5.8 %; Mean Corpuscular HGB Conc 32.9 g/dL (31.6-35.5); Mean Corpuscular Hemoglobin 26.9 pg (28.0-33.3); Mean Corpuscular Volume 81.8 fL (83.0-100.0); Mean Platelet Volume 10.1 fL (9.4-12.4); Monocytes # 2.8 K/mcL (0.0-1.3); Monocytes % 16.3 %; Platelet Count 186 K/mcL (140-400); Red Blood Count 2.97 M/mcL (4.19-5.50); Red Cell Distribution Width 15.8 % (11.5-14.5); Segmented Neutrophils % 75.6 %
[2016-05-13 06:00] LABS: BUN/Creatinine Ratio 36 (6-26); Blood Urea Nitrogen 47 mg/dL (8-26); Calcium 8.7 mg/dL (8.6-10.8); Carbon Dioxide 22 mEq/L (19-29); Chloride 94 mEq/L (98-109); Glucose 48 mg/dL (70-99); Osmolality,Calculated 265 (280-300); Phosphorous 2.7 mg/dL (2.3-4.7); Potassium 4.4 mEq/L (3.5-4.5); Sodium 123 mEq/L (136-145); eGFR For African Americans > 60 (> 60); eGFR For Non-African Americans 55 (> 60)
[2016-05-13] MEDS: Cefotaxime 2,000 MG in D5% in Water 100 ML IVPB SCH ×3 (06:04→20:57)
[2016-05-13] MEDS: *HR* Heparin 5,000 UNIT/ML VIAL SQ SCH ×2 (06:05→17:10)
[2016-05-13] MEDS: Lactulose Oral Soln 20 GM/30 ML UDC RC SCH (06:50)
[2016-05-13] MEDS: *HR* Insulin Regular U-500 500 UNIT/ML SQ SCH ×2 (08:16→17:10)
[2016-05-13] MEDS: Insulin LISPRO 300 UNITS/3 ML VIAL SQ SCH ×5 (08:16→20:56)
[2016-05-13] MEDS: RIFAXIMIN 200 MG PO SCH ×2 (08:17→20:56)
[2016-05-13] MEDS: Furosemide 40 MG/4 ML VIAL IVP SCH ×2 (08:18→20:56)
--- NOTE | 2016-05-13 09:04 | Podiatry Consult Note ---
Date of Encounter: 05/13/16 Time of Encounter: 08:00 Assessment and Plan (1) Venous stasis dermatitis of both lower extremities Current visit: No Status: Chronic Dressing removed Dermatitis noted to LLE without evidence of ulceration Barrier cream noted, may continue barrier cream to this area, adapic, 4x4, kerlex and YOON applied- please change daily and PRN if saturated Please continue compression to decrease edema Call with any signs of new ulceration or concern. (2) Chronic cutaneous venous stasis ulcer Current visit: No Status: Acute Dressings removed and assessed No need for acute intervention at this time No active bleed noted No clinical indicator of infection Ulceration appears venous in nature, will apply maxsorb, abd, kerlex and YOON for compression- please change daily or as needed if saturated. Also continue diuresis and fluid restriction to decrease edema of BLE Marked increase in white count today does not appear related to ulcer of RLE Patient will need to follow up in wound care 1-2 weeks after discharge for management of wound, patient states is he established at [facility]. (3) Ascites Current visit: Yes Status: Acute Qualifiers: Ascites type: other type Qualified Code(s): R18.8 - Other ascites History of Present Illness HPI: Mr. Harding is a 60 year old male who we were consulted on regarding bleed overnight to right collazo area. According to nurse, last night, patient was assisted to [facility] and a large amount of bleeding was noted to be coming from ulceration to right sin. States patient became lethargic and pale. A rapid response was called. Rapid note states that bleeding had stopped by time they arrived. Determined patient to be stable. Hbg this morning 8.0 increased from 7.4 yesterday. Patient states he does not remember any injury to skin while moving to [facility]. Patient has known ulceration to RLE, states it has been there for over a year. Patient states he is treated at [facility]. Upon entering room patient is awake and alert but is a poor historian and forgetful to conversation and commands. Patient denies any recently fevers chills n/v or flu like symptoms Past Med Surg Social Fam HX - Past Medical History Medical history: arthritis, cirrhosis, CHF, coronary artery disease, diabetes, GERD, hypertension, liver disease, other Psychiatric history: anxiety, depression - Past Surgical History Surgical History: appendectomy, cholecystectomy, other - Social History Smoking Status: Former smoker Smokeless Tobacco Status: No Alcohol use: none Drug use: none Medications and Allergies Amiloride/HCTZ 5-50mg [Moduretic 5-50mg] 1 tab PO DAILY 05/08/16 [History] Furosemide [Lasix] 40 mg PO DAILY 05/08/16 [History] Insulin ASPART [Novolog Flexpen] 20 unit SQ BID 05/08/16 [History] Insulin Glargine,Hum.rec.anlog [Lantus Solostar] 35 unit SQ HS 05/08/16 [History ] Insulin Regular U-500 [HumuLIN R U-500] 100 unit SQ BID 05/08/16 [History] Lactulose [Lactulose] 20 ml PO Q6H 05/08/16 [History] Omeprazole [PriLOSEC] 40 mg PO DAILY 05/08/16 [History] Ondansetron [Zofran] 8 mg PO Q12H PRN 05/08/16 [History] Potassium Chloride [K-Tab ER] 20 meq PO DAILY 05/08/16 [History] Rifaximin [Xifaxan] 550 mg PO BID 05/08/16 [History] Spironolactone [Aldactone] 100 mg PO DAILY 05/08/16 [History] Allergies Antihistamines - Alkylamine Allergy (Verified 05/08/16 11:10) Cough codeine Allergy (Verified 05/08/16 11:10) Nausea fluticasone [From Flonase] Allergy (Verified 05/08/16 11:10) Nose Bleed nitroglycerin [From Nitrostat] Allergy (Verified 05/08/16 11:10) Headache rofecoxib [From Vioxx] Allergy (Verified 05/08/16 11:10) Rash All Systems Reviewed: A 10-system review of systems was performed and is negative for pertinent findings except as documented above in the HPI. Physical Exam - Constitutional Vitals: Temp Pulse Resp BP Pulse Ox 97.6 F 77 16 146/79 97 05/13/16 07:38 05/13/16 08:28 05/13/16 08:28 05/13/16 07:22 05/13/16 08:28 Exam: General Examination: CONSTITUTIONAL: Alert, oriented, in no acute distress, non-toxic. EXTREMITIES: CFT 3 seconds all toes. Edema +2 ble and pedal pulses palpable dp/pt SKIN: Skin with decreased turgor, decreased subcutaneous tissue, skin thin and shiny with trophic changes associated with comorbidities as described in history.. NEUROLOGIC: inimal sensation to light touch. Intact sensation to moderate touch ulceration noted to right collazo. Appears to be venous ulcer due to 2+ pitting edema. Patient states this wound has been chronic. Area is ischemic. [id number] with 3cm tunneling under skin to 12oclock. Small area appears torn to distal aspect of wound 0.5cm x 0.5cm , patient denies hitting his collazo on anything, this appears to be the area of concern for bleeding however no active bleed is noted. No warmth, edema, erythema or drainage noted. No clinical signs of infection. Patient exhibits clinical signs of adequate bloodflow to extremity . There may have been a rupture of bulle or trauma to this area which caused the bleeding. Slight weeping noted. Left collazo, venous excoriation noted. No open ulcerations. Slight weeping noted Results - Labs Result Diagrams: 05/13/16 04:31 05/13/16 04:31 Labs: Abnormal lab results WBC 17.2 K/mcL (4.3-11.1) H D 05/13/16 04:31 RBC 2.97 M/mcL (4.19-5.50) L 05/13/16 04:31 Hgb 8.0 g/dL (12.9-16.9) L 05/13/16 04:31 Hct 24.3 % (37.5-50.1) L 05/13/16 04:31 MCV 81.8 fL (83.0-100.0) L 05/13/16 04:31 MCH 26.9 pg (28.0-33.3) L 05/13/16 04:31 RDW 15.8 % (11.5-14.5) H 05/13/16 04:31 Neutrophils # 13.0 K/mcL (1.6-8.9) H 05/13/16 04:31 Monocytes # 2.8 K/mcL (0.0-1.3) H 05/13/16 04:31 Platelet Estimate Decreased (Normal) L 05/12/16 05:26 PT 15.7 Seconds (9.4-12.1) H 05/12/16 19:04 APTT 36.5 Seconds (26.0-36.0) H 05/12/16 19:04 VBG pO2 55 mmHg (25-40) H 05/09/16 01:01 Sodium 123 mEq/L (136-145) L 05/13/16 04:31 Chloride 94 mEq/L (98-109) L 05/13/16 04:31 BUN 47 mg/dL (8-26) H 05/13/16 04:31 Creatinine 1.32 mg/dL (0.72-1.25) H 05/13/16 04:31 Est GFR (Non-Af Amer) 55 (> 60) L 05/13/16 04:31 BUN/Creatinine Ratio 36 (6-26) H 05/13/16 04:31 Glucose 48 mg/dL (70-99) L 05/13/16 04:31 POC Glucose 266 (58-89) H 05/12/16 21:41 Calculated Osmolality 265 (280-300) L 05/13/16 04:31 Total Bilirubin 2.1 mg/dL (0.2-1.2) H 05/08/16 17:40 Direct Bilirubin 1.2 mg/dL (0.0-0.5) H 05/08/16 12:03 AST 35 Units/L (5-34) H 05/08/16 17:40 Alkaline Phosphatase 168 Units/L (38-126) H 05/08/16 17:40 Ammonia 137 mcmol/L (18-72) H 05/12/16 19:04 B-Natriuretic Peptide 112 pg/mL (0-100) H 05/08/16 12:03 Albumin 2.2 g/dL (3.5-5.0) L 05/08/16 17:40 Globulin 5.0 g/dL (2.4-3.5) H 05/08/16 17:40 Albumin/Globulin Ratio 0.4 (1.1-2.2) L 05/08/16 17:40 Lipase 102 Units/L (8-78) H 05/08/16 12:03 Ur Specific Flushing 1.030 (1.010-1.025) H 05/08/16 12:06 Urine Glucose (UA) >=1000 mg/dL (Normal) H 05/08/16 12:06 Ur Leukocyte Esterase Small (Negative) H 05/08/16 12:06 Urine Microscopic WBC 30-50 per hpf (0-3) H 05/08/16 12:06 Ur Squamous Epith Cells Moderate per lpf (None-Few) H 05/08/16 12:06 Urine Yeast Few per hpf (None Seen) H 05/08/16 12:06 Ur Culture Indicated? YES (NO) A 05/08/16 12:06 H & H 05/12/16 05/13/16 Range/Units 19:04 04:31 Hgb 7.4 L 8.0 L (12.9-16.9) g/dL Hct 22.0 L 24.3 L (37.5-50.1) % All other labs normal. Consult Discharge Plan - Plan Referrals: Valery Wallace MD [Primary Care Provider] - 05/18/16 11:00 am
[2016-05-13] MEDS: Lactulose Oral Soln 20 GM/30 ML UDC PO SCH ×3 (11:11→20:50)
[2016-05-13] MEDS ORDERED: Lactulose 200 GM/300 ML (for enema) RC SCH (12:00)
[2016-05-13] MEDS ORDERED: Lactulose 200 GM, Sodium Chloride IRRigation 700 ML RC SCH (12:00)
--- NOTE | 2016-05-13 13:31 | Internal Med Progress Note ---
Date of Encounter: 05/13/16 Time of Encounter: 12:35 - Assessment and plan (1) Venous stasis dermatitis of both lower extremities Current Visit: No Status: Chronic (2) Hyperosmolar nonketotic coma in diabetes Current Visit: Yes Status: Acute (3) Cirrhosis of liver Current Visit: Yes Status: Acute Qualifiers: Hepatic cirrhosis type: unspecified hepatic cirrhosis Ascites presence: with ascites Qualified Code(s): K74.60 - Unspecified cirrhosis of liver (4) DVT prophylaxis Current Visit: Yes Status: Acute (5) Ascites Current Visit: Yes Status: Acute Assessment and plan: 60 y/o male with pmh of cirrhosis, GERD, HTN, CAD admitted to the hospital with complaints of abdominal distension. Patient has significant ascitis with exam and reports having underwent paracentesis about a month ago at another facility. 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 Hep C panel pending. No features of encephalopathy or SBP at this time. empirically on cefotaxime. On lasix and aldactone. Paracentesis done 05/10 with removal of 9 l of fluid. Albumin given post procedure. No features on encephalopathy. Ascitic fluid available results negative for infection. # Leukocytosis: Likely reactive to the bleeding episode, no acute signs of infectious etiology present. Will continue to closely monitor. # RLE ulceration/bleeding: Podiatry consultation appreciated. Continue daily wound care. No surgical intervention recommended at this time. # Anemia: s/p 1 unit PRBC transfusion (05/12/16). Repeat H&H within acceptable limits. No acute bleeding reported at this time. Will continue to monitor closely and transfuse as needed. # UTI: Urine positive with negative c/s. On antibiotics as above to cover for possible SBP and UTI # Hyperosmolar nonketotic state secondary to uncontrolled DM: Pt started on home dose of U500 with better control of blood glucose. Noted to be hypoglycemic this morning. Will adjust home dosing of U500. Discontinue Lispro and Levemir. continue sliding scale insulin algorithm. Continue to monitor BG AC and HS. P # B/l LE swelling: In setting of volume overload, compression from ascitis. continues to have positive fluid balance despite lasix therapy. Will give one additional dose of Lasix 40mg IV. # DVT prophylaxis: Sub Q heparin. Thrombocytopenia resolved. Will continue to monitor. # Scrotal edema extending to b/l UE: Will obtain CT pelvis. Maintain hill care. Urology eval requested. Qualifiers: Ascites type: other type Qualified Code(s): R18.8 - Other ascites - Subjective Interval history: Pt seen and examined at bedside. Pt was reported to have significant blood loss from RLE wound yesterday evening due to which a rapid response was called. Patient's bleeding was stopped prior to arrival of the rapid response team. Due to the acute blood loss, 1 unit of PRBC was transfused. Patient seen and examined at bedside, resting in bed. Denies any bleeding episodes today. He was evaluated by podiatry and dressings were changed. He was noted to have RLE nonbleeding ulceration and daily dressing changes were recommended. - Constitutional Vitals: Temp Pulse Resp BP Pulse Ox 97.6 F 82 16 150/75 97 05/13/16 07:38 05/13/16 11:16 05/13/16 11:16 05/13/16 11:16 05/13/16 11:16 General appearance: Present: A&O X 3, morbidly obese, no acute distress - Head Head exam: Present: atraumatic, normocephalic - Eye Eye exam: Present: normal appearance, conjuntiva pink, sclera anicteric - Respiratory Respiratory exam: Absent: respiratory distress, wheezes - Cardiovascular Cardiovascular exam: Present: RRR, +S1, +S2. Absent: diastolic murmur, gallop, rubs, systolic murmur - GI/Abdominal GI/Abdominal exam: Present: distended (ascites, positive wave sign), soft, no peritoneal signs. Absent: guarding, tenderness - Extremities Exam Extremities exam: Present: pedal edema (bilateral lower extremity edema, bilateral lower extremities wrapped in dressing), warm, radial pulses palpable and symetrical. Absent: calf tenderness - Neurological Exam Neurological exam: Present: alert - Psychiatric Psychiatric exam: Present: normal affect, normal mood Internal Medicine: Result - Labs CBC & Chem 7: 05/13/16 04:31 05/13/16 04:31 Labs: Short CBC 05/12/16 05/13/16 Range/Units 19:04 04:31 WBC 10.0 D 17.2 H D (4.3-11.1) K/mcL Hgb 7.4 L 8.0 L (12.9-16.9) g/dL Hct 22.0 L 24.3 L (37.5-50.1) % Plt Count 134 L D 186 (140-400) K/mcL Neutrophils # 7.6 13.0 H (1.6-8.9) K/mcL BMP 05/12/16 05/13/16 19:04 04:31 Sodium 122 L 123 L Potassium 4.8 H 4.4 Chloride 93 L 94 L Carbon Dioxide 21 22 BUN 47 H 47 H Creatinine 1.46 H 1.32 H Glucose 278 H 48 L Calcium 8.2 L 8.7 - ABG Interpretation ABG results: PT/INR, D-dimer PT 15.7 Seconds (9.4-12.1) H 05/12/16 19:04 Consult Discharge Plan - Plan Referrals: Valery Wallace MD [Primary Care Provider] - 05/18/16 11:00 am
[2016-05-13] MEDS ORDERED: Furosemide 40 MG/4 ML VIAL IVP ONE (14:27)
[2016-05-14] MEDS: Cefotaxime 2,000 MG in D5% in Water 100 ML IVPB SCH ×2 (04:03→11:48)
[2016-05-14] MEDS: *HR* Heparin 5,000 UNIT/ML VIAL SQ SCH (05:51)
[2016-05-14 06:00] LABS: Mean Corpuscular Volume 82.7 fL (83.0-100.0); Red Blood Count 2.54 M/mcL (4.19-5.50)
[2016-05-14 06:02] LABS: Basophils % 0.2 %; Eosinophils # 0.3 K/mcL (0.0-0.6); Immature Granulocytes % 0.9 % (0-4); Immature Platelets 2.3 % (1.1-6.1); Lymphocytes # 0.6 K/mcL (0.6-4.6); Lymphocytes % 7.5 %; Mean Corpuscular HGB Conc 33.3 g/dL (31.6-35.5); Mean Corpuscular Hemoglobin 27.6 pg (28.0-33.3); Mean Platelet Volume 10.1 fL (9.4-12.4); Monocytes # 1.4 K/mcL (0.0-1.3); Monocytes % 17.5 %; Neutrophils # 5.8 K/mcL (1.6-8.9); Red Cell Distribution Width 16.2 % (11.5-14.5); Segmented Neutrophils % 70.9 %
[2016-05-14 06:23] LABS: Calcium 8.2 mg/dL (8.6-10.8); Phosphorous 3.5 mg/dL (2.3-4.7)
[2016-05-14 06:39] LABS: Platelet Count 83 K/mcL (140-400)
[2016-05-14 06:40] LABS: Anisocytosis 1+ (Not Present); Microcytosis Present (Not Present); Platelet Estimate Decreased (Normal); Reactive Lymphocytes Present (Not Present)
[2016-05-14 06:41] LABS: Polychromasia 1+ (Not Present)
--- NOTE | 2016-05-14 07:46 | Urology - Consult Note ---
Date of Encounter: 05/13/16 Time of Encounter: 07:44 - Assessment and Plan (1) Genital edema, male Current Visit: Yes Status: Acute Assessment and plan: the genital edema is not severe and consistent with his overall anasarca. if edema worsens, try to elevated scrotum with a rolled towel. cath in place but reviewing the records it does not appear he was in retention. pt states he is bothered by the catheter. OK to leave the cath in place if needed for accurate I&Os or diuresiss. However, Ok to remove from urology standpoint if patient wants the cath removed or no longer needed per primary service. Urology CN:HPI Consult date: 05/13/16 Reason for consult Urology: Other History of present illness: pt with maasive ascites and liver disease. anasarca and genital edema. hill cath placed tuesday with return of 150 cc per nursing notes. no obvious retention Past Med Surg Social Fam HX - Past Medical History Medical history: arthritis, cirrhosis, CHF, coronary artery disease, diabetes, GERD, hypertension, liver disease, other Psychiatric history: anxiety, depression - Past Surgical History Surgical History: appendectomy, cholecystectomy, other - Social History Smoking Status: Former smoker Smokeless Tobacco Status: No Alcohol use: none Drug use: none Medications and Allergies Amiloride/HCTZ 5-50mg [Moduretic 5-50mg] 1 tab PO DAILY 05/08/16 [History] Furosemide [Lasix] 40 mg PO DAILY 05/08/16 [History] Insulin ASPART [Novolog Flexpen] 20 unit SQ BID 05/08/16 [History] Insulin Glargine,Hum.rec.anlog [Lantus Solostar] 35 unit SQ HS 05/08/16 [History ] Insulin Regular U-500 [HumuLIN R U-500] 100 unit SQ BID 05/08/16 [History] Lactulose [Lactulose] 20 ml PO Q6H 05/08/16 [History] Omeprazole [PriLOSEC] 40 mg PO DAILY 05/08/16 [History] Ondansetron [Zofran] 8 mg PO Q12H PRN 05/08/16 [History] Potassium Chloride [K-Tab ER] 20 meq PO DAILY 05/08/16 [History] Rifaximin [Xifaxan] 550 mg PO BID 05/08/16 [History] Spironolactone [Aldactone] 100 mg PO DAILY 05/08/16 [History] Allergies Antihistamines - Alkylamine Allergy (Verified 05/08/16 11:10) Cough codeine Allergy (Verified 05/08/16 11:10) Nausea fluticasone [From Flonase] Allergy (Verified 05/08/16 11:10) Nose Bleed nitroglycerin [From Nitrostat] Allergy (Verified 05/08/16 11:10) Headache rofecoxib [From Vioxx] Allergy (Verified 05/08/16 11:10) Rash Review of Systems - Constitutional malaise, weakness, no chills, no fever(s) - EENT Nose, mouth and throat: dizziness - Cardiovascular no chest pain - Respiratory no cough - Gastrointestinal abdominal pain, nausea - Genitourinary no hematuria - Musculoskeletal back pain - Integumentary erythema - Neurological confusion - Psychiatric no anxiety - Hematologic/Lymphatic no easy bleeding Exam Initial Vital Signs Temp Pulse Resp BP Pulse Ox 97.8 F 97 24 119/69 94 L 05/08/16 11:10 05/08/16 11:10 05/08/16 11:10 05/08/16 11:10 05/08/16 11:10 - General physical appearance Present: no distress, chronically ill - Eyes Present: PERRL - ENT Present: normal nares - Neck Present: no masses - Respiratory Present: normal respiratory effort - Abdomen Abdomen: Present: distended (large distended bladder consistant with ascites. ) - Genitourinary Penis: Present: edema (mild/moderate genital edema - penile shaft and scrotal wall. some erythema but no obvious cellulitis. able to visualize glans) - Additional Findings hill cath with clear urine. Urology Results - Labs 05/14/16 05:44 05/14/16 05:44 Abnormal lab results RBC 2.54 M/mcL (4.19-5.50) L 05/14/16 05:44 Hgb 7.0 g/dL (12.9-16.9) L 05/14/16 05:44 Hct 21.0 % (37.5-50.1) L 05/14/16 05:44 MCV 82.7 fL (83.0-100.0) L 05/14/16 05:44 MCH 27.6 pg (28.0-33.3) L 05/14/16 05:44 RDW 16.2 % (11.5-14.5) H 05/14/16 05:44 Plt Count 83 K/mcL (140-400) L D 05/14/16 05:44 Monocytes # 1.4 K/mcL (0.0-1.3) H 05/14/16 05:44 Reactive Lymphocytes Present (Not Present) A 05/14/16 05:44 Platelet Estimate Decreased (Normal) L 05/14/16 05:44 Polychromasia 1+ (Not Present) A 05/14/16 05:44 Anisocytosis 1+ (Not Present) A 05/14/16 05:44 Microcytosis Present (Not Present) A 05/14/16 05:44 PT 15.7 Seconds (9.4-12.1) H 05/12/16 19:04 APTT 36.5 Seconds (26.0-36.0) H 05/12/16 19:04 VBG pO2 55 mmHg (25-40) H 05/09/16 01:01 Sodium 121 mEq/L (136-145) L 05/14/16 05:44 Potassium 5.0 mEq/L (3.5-4.5) H 05/14/16 05:44 Chloride 93 mEq/L (98-109) L 05/14/16 05:44 BUN 52 mg/dL (8-26) H 05/14/16 05:44 Creatinine 1.47 mg/dL (0.72-1.25) H 05/14/16 05:44 Est GFR ( Amer) 59 (> 60) L 05/14/16 05:44 Est GFR (Non-Af Amer) 49 (> 60) L 05/14/16 05:44 BUN/Creatinine Ratio 35 (6-26) H 05/14/16 05:44 Glucose 161 mg/dL (70-99) H 05/14/16 05:44 POC Glucose 203 (58-89) H 05/13/16 20:35 Calculated Osmolality 270 (280-300) L 05/14/16 05:44 Calcium 8.2 mg/dL (8.6-10.8) L 05/14/16 05:44 Total Bilirubin 2.1 mg/dL (0.2-1.2) H 05/08/16 17:40 Direct Bilirubin 1.2 mg/dL (0.0-0.5) H 05/08/16 12:03 AST 35 Units/L (5-34) H 05/08/16 17:40 Alkaline Phosphatase 168 Units/L (38-126) H 05/08/16 17:40 Ammonia 137 mcmol/L (18-72) H 05/12/16 19:04 B-Natriuretic Peptide 112 pg/mL (0-100) H 05/08/16 12:03 Albumin 2.2 g/dL (3.5-5.0) L 05/08/16 17:40 Globulin 5.0 g/dL (2.4-3.5) H 05/08/16 17:40 Albumin/Globulin Ratio 0.4 (1.1-2.2) L 05/08/16 17:40 Lipase 102 Units/L (8-78) H 05/08/16 12:03 Ur Specific Mears 1.030 (1.010-1.025) H 05/08/16 12:06 Urine Glucose (UA) >=1000 mg/dL (Normal) H 05/08/16 12:06 Ur Leukocyte Esterase Small (Negative) H 05/08/16 12:06 Urine Microscopic WBC 30-50 per hpf (0-3) H 05/08/16 12:06 Ur Squamous Epith Cells Moderate per lpf (None-Few) H 05/08/16 12:06 Urine Yeast Few per hpf (None Seen) H 05/08/16 12:06 Ur Culture Indicated? YES (NO) A 05/08/16 12:06 Diabetes panel 05/14/16 Range/Units 05:44 Sodium 121 L (136-145) mEq/L Potassium 5.0 H (3.5-4.5) mEq/L Chloride 93 L (98-109) mEq/L Carbon Dioxide 24 (19-29) mEq/L BUN 52 H (8-26) mg/dL Creatinine 1.47 H (0.72-1.25) mg/dL Glucose 161 H (70-99) mg/dL Calcium 8.2 L (8.6-10.8) mg/dL Calcium panel 05/14/16 Range/Units 05:44 Calcium 8.2 L (8.6-10.8) mg/dL Phosphorus 3.5 (2.3-4.7) mg/dL Pituitary panel 05/14/16 Range/Units 05:44 Sodium 121 L (136-145) mEq/L Potassium 5.0 H (3.5-4.5) mEq/L Chloride 93 L (98-109) mEq/L Carbon Dioxide 24 (19-29) mEq/L BUN 52 H (8-26) mg/dL Creatinine 1.47 H (0.72-1.25) mg/dL Glucose 161 H (70-99) mg/dL Calcium 8.2 L (8.6-10.8) mg/dL Adrenal panel 05/14/16 Range/Units 05:44 Sodium 121 L (136-145) mEq/L Potassium 5.0 H (3.5-4.5) mEq/L Chloride 93 L (98-109) mEq/L Carbon Dioxide 24 (19-29) mEq/L BUN 52 H (8-26) mg/dL Creatinine 1.47 H (0.72-1.25) mg/dL Glucose 161 H (70-99) mg/dL Calcium 8.2 L (8.6-10.8) mg/dL All other labs normal. Consult Discharge Plan - Plan Referrals: Valery Wallace MD [Primary Care Provider] - 05/18/16 11:00 am
[2016-05-14] MEDS: Lactulose Oral Soln 20 GM/30 ML UDC PO SCH ×4 (08:07→21:16)
[2016-05-14] MEDS: Furosemide 40 MG/4 ML VIAL IVP SCH (08:08)
[2016-05-14] MEDS: Insulin LISPRO 300 UNITS/3 ML VIAL SQ SCH ×4 (08:09→21:15)
[2016-05-14] MEDS: RIFAXIMIN 200 MG PO SCH ×2 (08:09→21:16)
[2016-05-14] MEDS: *HR* OxyCODONE Immed Rel 5 MG TABLET PO PRN (08:09)
[2016-05-14] MEDS: *HR* Insulin Regular U-500 500 UNIT/ML SQ SCH ×2 (08:58→17:12)
[2016-05-14] MEDS: Ondansetron 4 MG/2 ML VIAL IVP PRN ×2 (11:48→23:58)
--- NOTE | 2016-05-14 12:27 | Discharge Summary ---
Date of Encounter: 05/13/16 Time of Encounter: 12:23 - Discharge Diagnosis (1) Venous stasis dermatitis of both lower extremities Priority: Secondary Status: Chronic (2) Hyperosmolar nonketotic coma in diabetes Priority: Primary Status: Acute (3) Cirrhosis of liver Priority: Secondary Status: Acute Qualifiers: Hepatic cirrhosis type: unspecified hepatic cirrhosis Ascites presence: with ascites Qualified Code(s): K74.60 - Unspecified cirrhosis of liver (4) DVT prophylaxis Priority: Secondary Status: Acute (5) Ascites Priority: Primary Status: Acute Qualifiers: Ascites type: other type Qualified Code(s): R18.8 - Other ascites - Discharge Medications Prescriptions: OxyCODONE Immed Rel [Roxicodone 5 MG] 5 mg PO Q6HR PRN #20 tablet PRN Reason: Pain Home Medications: Amiloride/HCTZ 5-50mg [Moduretic 5-50mg] 1 tab PO DAILY 05/08/16 [History] Furosemide [Lasix] 40 mg PO DAILY 05/08/16 [History] Insulin Regular U-500 [HumuLIN R U-500] 100 unit SQ BID 05/08/16 [History] Lactulose 20 ml PO Q6H 05/08/16 [History] Omeprazole [PriLOSEC] 40 mg PO DAILY 05/08/16 [History] Ondansetron [Zofran] 8 mg PO Q12H PRN 05/08/16 [History] Potassium Chloride [K-Tab ER] 20 meq PO DAILY 05/08/16 [History] Rifaximin [Xifaxan] 550 mg PO BID 05/08/16 [History] Spironolactone [Aldactone] 100 mg PO DAILY 05/08/16 [History] OxyCODONE Immed Rel [Roxicodone 5 MG] 5 mg PO Q6HR PRN #20 tablet 05/14/16 [Rx] Allergies/Adverse Reactions: Allergies Antihistamines - Alkylamine Allergy (Verified 05/08/16 11:10) Cough codeine Allergy (Verified 05/08/16 11:10) Nausea fluticasone [From Flonase] Allergy (Verified 05/08/16 11:10) Nose Bleed nitroglycerin [From Nitrostat] Allergy (Verified 05/08/16 11:10) Headache rofecoxib [From Vioxx] Allergy (Verified 05/08/16 11:10) Rash Procedures/tests Complete & Pending: Procedures Performed prior 72 hours Category Date Time Status CT abd pelvis wo no iv no oral [CT] Stat Cat Scan 05/13/16 13:31 Completed Date of admission: 05/08/16 20:02 Primary care physician: Valery Wallace, Consults: 05/08/16 20:08 Consult to Wound Care [CONS] Routine Reason for Consult: lower extremity dermatitis Time Notified: 20:08 Call Completed: No 05/12/16 20:01 Consult to Podiatry [CONS] Routine Consulting Provider: [facility] Reason for Consult: Right collazo wound Time Notified: 20:05 Call Completed: Yes 05/13/16 09:51 Consult to Occupational Therapy [CONS] Routine Comment: Evaluate, develop and implement POC Consult to Physical Therapy [CONS] Routine Comment: Evaluate, develop and implement POC Consult to Senior Media Director [CONS] Routine Reason for SW Consult: Weakness. Discharge planning. 05/13/16 14:59 Consult to Urology [CONS] Routine Consulting Provider: Urologurvashi Garcia Reason for Consult: scrotal swelling Call Completed: Yes Discharging clinician: Andreina Diego Anticipated date of discharge: 05/14/16 - Patient Status Disposition: Transfer SNF Condition: Good Functional capacity at discharge: uses cane/walker Overall status at discharge: patient is back to baseline - Discharge Instructions Follow Up With: Valery Wallace MD [Primary Care Provider] - Erika Dumont CNP [Advanced Practice Nurse] - 06/08/16 7:00 am Additional Instructions: Please follow up with your primary care physician within one week after your discharge from the hospital. Please follow up with Podiatry within one to two weeks after your discharge from the hospital. Please continue daily dressing changes. Wound Care instructions: Wound Care: BLE venous stasis ulcerations - cleanse daily with HCG soap and water - rinse well with water and pat dry - apply Calazime Lotion to the brown discolored skin - cover the ulcers with calcium alginate with silver (CSS-Maxorb AG) - pad with 5x9 ABDs - wrap with kerlix from toes to knees - wrap with 4" coban from toes to knees - Not too tight - change dressings daily and prn if soiled - elevated legs on pillows Closely monitor your fingerstick glucose. Adhere to a Diabetic diet. Please resume all your home medications as prescribed by your primary care physician. - Diet and Activity Activity: as per physical therapy Diet: diabetic diet, low salt diet Hospital course: Mr. Harding is a 60 year old male with PMH of cirrhosis of the liver, ascites, CAD , DM, GERD, HTN who was admitted for management of worsening ascites and hyperosmolar nonketotic coma in DM. He underwent paracentesis and was started on insulin therapy. His presenting symptoms improved however his hospital course was further complicated by an acute onset of bleeding RLE ulcer. He required PRBC transfusions and podiatry was further consulted. Patient has history of chronic venous stasis and is currently undergoing daily wound care managed by podiatry. He did not have recurrent bleeding episodes but had another drop in H&H requiring transfusions. He has history of anemia with baseline Hgb around 7-8. He was evaluated by physical therapy and ECF is recommended. He was also noted to have scrotal edema for which urology was consulted. No further intervention was recommended by urology as his scrotal edema is in line with his generalized anasarca secondary to his liver cirrhosis. He will be discharged to ECF with follow up with PCP, GI, and Podiatry. He is to get daily wound care dressing changes. Patient demonstrates understanding of his diagnosis and agrees with the discharge care plan. - Time Spent with Patient Total time spent providing and/or coordinating discharge services: Greater than 30 minutes - Constitutional Vitals: Temp Pulse Resp BP Pulse Ox 97.9 F 82 18 128/58 95 05/14/16 11:20 05/14/16 11:55 05/14/16 11:20 05/14/16 11:20 05/14/16 07:32 General appearance: Present: A&O X 3, morbidly obese, no acute distress - Head Head exam: Present: atraumatic, normocephalic - Eye Eye exam: Present: normal appearance, conjuntiva pink, sclera anicteric - Respiratory Respiratory exam: Present: CTAB. Absent: accessory muscle use, rales, rhonchi, wheezes - Cardiovascular Cardiovascular exam: Present: RRR, +S1, +S2. Absent: diastolic murmur, gallop, rubs, systolic murmur - GI/Abdominal GI/Abdominal exam: Present: distended (ascites with positive wave sign), normal bowel sounds, soft. Absent: tenderness - Extremities Exam Extremities exam: Present: pedal edema (bilateral lower extremity edema. Dressing intact on bilateral LE), warm, radial pulses palpable and symetrical. Absent: calf tenderness - Neurological Exam Neurological exam: Present: alert, oriented X3 - Psychiatric Psychiatric exam: Present: normal affect, normal mood
--- NOTE | 2016-05-14 12:37 | Physician Discharge Referral ---
[facility] Referral Info Transfer To: F Provider in Charge after Transfer: PCP - Diagnosis (1) Venous stasis dermatitis of both lower extremities Priority: Secondary Status: Chronic (2) Hyperosmolar nonketotic coma in diabetes Priority: Primary Status: Acute (3) Cirrhosis of liver Priority: Secondary Status: Acute (4) DVT prophylaxis Priority: Secondary Status: Acute (5) Ascites Priority: Primary Status: Acute - Transfer Medications Prescriptions: OxyCODONE Immed Rel [Roxicodone 5 MG] 5 mg PO Q6HR PRN #20 tablet PRN Reason: Pain Home Medications: Amiloride/HCTZ 5-50mg [Moduretic 5-50mg] 1 tab PO DAILY 05/08/16 [History] Furosemide [Lasix] 40 mg PO DAILY 05/08/16 [History] Insulin Regular U-500 [HumuLIN R U-500] 100 unit SQ BID 05/08/16 [History] Lactulose 20 ml PO Q6H 05/08/16 [History] Omeprazole [PriLOSEC] 40 mg PO DAILY 05/08/16 [History] Ondansetron [Zofran] 8 mg PO Q12H PRN 05/08/16 [History] Potassium Chloride [K-Tab ER] 20 meq PO DAILY 05/08/16 [History] Rifaximin [Xifaxan] 550 mg PO BID 05/08/16 [History] Spironolactone [Aldactone] 100 mg PO DAILY 05/08/16 [History] OxyCODONE Immed Rel [Roxicodone 5 MG] 5 mg PO Q6HR PRN #20 tablet 05/14/16 [Rx] Allergies/Adverse Reactions: Allergies Antihistamines - Alkylamine Allergy (Verified 05/08/16 11:10) Cough codeine Allergy (Verified 05/08/16 11:10) Nausea fluticasone [From Flonase] Allergy (Verified 05/08/16 11:10) Nose Bleed nitroglycerin [From Nitrostat] Allergy (Verified 05/08/16 11:10) Headache rofecoxib [From Vioxx] Allergy (Verified 05/08/16 11:10) Rash - Respiratory Orders Smoking Cessation: Smoking cessation has been advised. For more information, call the [place] Tobacco Quit Line at 0-734-RXDF-NOW. - Treatments List/Other: Please follow up with your primary care physician within one week after your discharge from the hospital. Please follow up with Podiatry within one to two weeks after your discharge from the hospital. Please continue daily dressing changes. Wound Care instructions: Wound Care: BLE venous stasis ulcerations - cleanse daily with HCG soap and water - rinse well with water and pat dry - apply Calazime Lotion to the brown discolored skin - cover the ulcers with calcium alginate with silver (CSS-Maxorb AG) - pad with 5x9 ABDs - wrap with kerlix from toes to knees - wrap with 4" coban from toes to knees - Not too tight - change dressings daily and prn if soiled - elevated legs on pillows Closely monitor your fingerstick glucose. Adhere to a Diabetic diet. Please resume all your home medications as prescribed by your primary care physician. - Diet Orders House Supplement per Dietary: DIABETIC DIET CERTIFICATION: I certify that the transfer of the above named patient to an Extended Care Facility is necessary for the continuing treatment of the diagnosis listed. The above information is true and accurate reflection of patient's current condition. Confidential - Redisclosure prohibited without a patient's written consent.
[2016-05-14] MEDS ORDERED: ALPRAZolam 0.25 MG TABLET PO PRN (14:05)
[2016-05-14] MEDS ORDERED: *HR* LORazepam 0.5 MG TABLET PO PRN (14:23)
--- NOTE | 2016-05-14 14:31 | Podiatry Progress Note ---
Date of Encounter: 05/13/16 Time of Encounter: 11:00 - Assessment and Plan (1) Venous stasis dermatitis of both lower extremities Current Visit: No Status: Chronic Dressing intact Continue current treatment may continue barrier cream to this area, adapic, 4x4, kerlex and YOON applied- please change daily and PRN if saturated Please continue compression to decrease edema Call with any signs of new ulceration or concern. (2) Chronic cutaneous venous stasis ulcer Current Visit: No Status: Acute Dressings removed and assessed No change in appearance No active bleed noted No clinical indicator of infection Ulceration appears venous in nature, will apply maxsorb, abd, kerlex and YOON for compression- please change daily or as needed if saturated. If maxsob sticks to area, may change to adaptic once drainage has decreased Also continue diuresis and fluid restriction to decrease edema of BLE Patient will need to follow up in wound care 1-2 weeks after discharge for management of wound, patient states is he established at [place]. (3) Ascites Current Visit: Yes Status: Acute Qualifiers: Ascites type: other type Qualified Code(s): R18.8 - Other ascites Subjective Interval history: Mr. Harding is a 60 year old male who we were consulted on regarding bleed 2 nights ago to right collazo area. Upon entering room, nurse states patient has been stable. Hbg stable and reports no new bleed noted to area. Patient resting comfortably. Denies any fevers chills n/v or flu like symptoms Objective - Vital Signs Vital Signs: Vital Signs Temp Pulse Resp BP Pulse Ox 05/14/16 11:55 82 05/14/16 11:20 97.9 F 87 18 128/58 05/14/16 07:50 89 05/14/16 07:32 98 F 87 17 102/58 95 05/14/16 07:26 98.0 F 86 18 102/58 95 05/14/16 03:46 98.3 F 82 18 110/54 99 05/13/16 23:59 98.3 F 85 16 107/59 95 05/13/16 18:36 98.0 F 84 16 111/59 95 05/13/16 16:37 86 05/13/16 16:22 97.7 F 88 18 108/61 96 Intake and Output 03/30/17 03/31/17 03/31/17 23:59 07:59 15:59 Intake Total 400 / 400 100 / 100 840 / 840 Output Total 475 / 475 700 / 700 550 / 550 Balance -75 / -75 -600 / -600 290 / 290 Intake: IV Fluids 100 / 100 100 / 100 Claforan 2,000 MG In 100 / 100 100 / 100 Dextrose 5% 100 ML @ 200 mls/hr IVPB Q8H [facility] Rx#: [id number] Oral 300 / 300 840 / 840 Output: Urine 175 / 175 200 / 200 300 / 300 Urethral (Vill[place]omez) 175 / 175 100 / 100 300 / 300 Catheter 300 / 300 500 / 500 250 / 250 Other: Meal Breakfast Percent of Meal Consumed 50% Stool Size Large Copious Stool Consistency soft loose soft Stool Color Brown Brown Weight 122.3 kg Blood Glucose* 229 181 202 Patient Weight 05/14/16 23:59 Weight 122.3 kg - Exam Exam: General Examination: CONSTITUTIONAL: Alert, oriented, in no acute distress, non-toxic. Poor historian EXTREMITIES: CFT 3 seconds all toes. Edema +2 and pedal pulses palpable. SKIN: Skin with decreased turgor, decreased subcutaneous tissue, skin thin and shiny with trophic changes associated with comorbidities as described in history.. NEUROLOGIC: Sensation intact to moderate touch Necrotic venous ulceration remains, unchanged in appearance since 05/13 appearance. No bleeding noted at this time. Nurse at bedside changing dressing at this time - Lab Result Diagrams: 05/14/16 05:44 05/14/16 05:44 Labs: Abnormal lab results RBC 2.54 M/mcL (4.19-5.50) L 05/14/16 05:44 Hgb 7.0 g/dL (12.9-16.9) L 05/14/16 05:44 Hct 21.0 % (37.5-50.1) L 05/14/16 05:44 MCV 82.7 fL (83.0-100.0) L 05/14/16 05:44 MCH 27.6 pg (28.0-33.3) L 05/14/16 05:44 RDW 16.2 % (11.5-14.5) H 05/14/16 05:44 Plt Count 83 K/mcL (140-400) L D 05/14/16 05:44 Monocytes # 1.4 K/mcL (0.0-1.3) H 05/14/16 05:44 Reactive Lymphocytes Present (Not Present) A 05/14/16 05:44 Platelet Estimate Decreased (Normal) L 05/14/16 05:44 Polychromasia 1+ (Not Present) A 05/14/16 05:44 Anisocytosis 1+ (Not Present) A 05/14/16 05:44 Microcytosis Present (Not Present) A 05/14/16 05:44 PT 15.7 Seconds (9.4-12.1) H 05/12/16 19:04 APTT 36.5 Seconds (26.0-36.0) H 05/12/16 19:04 VBG pO2 55 mmHg (25-40) H 05/09/16 01:01 Sodium 121 mEq/L (136-145) L 05/14/16 05:44 Potassium 5.0 mEq/L (3.5-4.5) H 05/14/16 05:44 Chloride 93 mEq/L (98-109) L 05/14/16 05:44 BUN 52 mg/dL (8-26) H 05/14/16 05:44 Creatinine 1.47 mg/dL (0.72-1.25) H 05/14/16 05:44 Est GFR ( Amer) 59 (> 60) L 05/14/16 05:44 Est GFR (Non-Af Amer) 49 (> 60) L 05/14/16 05:44 BUN/Creatinine Ratio 35 (6-26) H 05/14/16 05:44 Glucose 161 mg/dL (70-99) H 05/14/16 05:44 POC Glucose 203 (58-89) H 05/13/16 20:35 Calculated Osmolality 270 (280-300) L 05/14/16 05:44 Calcium 8.2 mg/dL (8.6-10.8) L 05/14/16 05:44 Total Bilirubin 2.1 mg/dL (0.2-1.2) H 05/08/16 17:40 Direct Bilirubin 1.2 mg/dL (0.0-0.5) H 05/08/16 12:03 AST 35 Units/L (5-34) H 05/08/16 17:40 Alkaline Phosphatase 168 Units/L (38-126) H 05/08/16 17:40 Ammonia 137 mcmol/L (18-72) H 05/12/16 19:04 B-Natriuretic Peptide 112 pg/mL (0-100) H 05/08/16 12:03 Albumin 2.2 g/dL (3.5-5.0) L 05/08/16 17:40 Globulin 5.0 g/dL (2.4-3.5) H 05/08/16 17:40 Albumin/Globulin Ratio 0.4 (1.1-2.2) L 05/08/16 17:40 Lipase 102 Units/L (8-78) H 05/08/16 12:03 Ur Specific [place] 1.030 (1.010-1.025) H 05/08/16 12:06 Urine Glucose (UA) >=1000 mg/dL (Normal) H 05/08/16 12:06 Ur Leukocyte Esterase Small (Negative) H 05/08/16 12:06 Urine Microscopic WBC 30-50 per hpf (0-3) H 05/08/16 12:06 Ur Squamous Epith Cells Moderate per lpf (None-Few) H 05/08/16 12:06 Urine Yeast Few per hpf (None Seen) H 05/08/16 12:06 Ur Culture Indicated? YES (NO) A 05/08/16 12:06 Microbiology, Last 48 Hours 05/10/16 13:00 Body Fluid Culture - Final Peritoneal Fluid Consult Discharge Plan - Plan Additional Instructions: Please follow up with your primary care physician within one week after your discharge from the hospital. Please follow up with Podiatry within one to two weeks after your discharge from the hospital. Please continue daily dressing changes. Wound Care instructions: Wound Care: BLE venous stasis ulcerations - cleanse daily with HCG soap and water - rinse well with water and pat dry - apply Calazime Lotion to the brown discolored skin - cover the ulcers with calcium alginate with silver (CSS-Maxorb AG) - pad with 5x9 ABDs - wrap with kerlix from toes to knees - wrap with 4" coban from toes to knees - Not too tight - change dressings daily and prn if soiled - elevated legs on pillows Closely monitor your fingerstick glucose. Adhere to a Diabetic diet. Please resume all your home medications as prescribed by your primary care physician. Referrals: Valery Wallace MD [Primary Care Provider] - Erika Dumont CNP [Advanced Practice Nurse] - 06/08/16 7:00 am Prescriptions: OxyCODONE Immed Rel [Roxicodone 5 MG] 5 mg PO Q6HR PRN #20 tablet PRN Reason: Pain
[2016-05-14] MEDS ORDERED: Furosemide 40 MG/4 ML VIAL IVP SCH (17:00)
[2016-05-14] MEDS: Nystatin POWDER 30 GM BOTTLE TP SCH ×2 (17:12→21:18)
[2016-05-14 19:22] LABS: Basophils % 0.2 %; Eosinophils # 0.3 K/mcL (0.0-0.6); Eosinophils % 2.7 %; Hematocrit 25.3 % (37.5-50.1); Hemoglobin 8.3 g/dL (12.9-16.9); Lymphocytes # 0.7 K/mcL (0.6-4.6); Lymphocytes % 6.8 %; Mean Corpuscular HGB Conc 32.8 g/dL (31.6-35.5); Mean Corpuscular Hemoglobin 27.7 pg (28.0-33.3); Mean Corpuscular Volume 84.3 fL (83.0-100.0); Mean Platelet Volume 10.1 fL (9.4-12.4); Monocytes # 1.7 K/mcL (0.0-1.3); Monocytes % 16.9 %; Neutrophils # 7.3 K/mcL (1.6-8.9); Platelet Count 103 K/mcL (140-400); Red Cell Distribution Width 15.6 % (11.5-14.5); Segmented Neutrophils % 72.4 %
[2016-05-15] MEDS: *HR* OxyCODONE Immed Rel 5 MG TABLET PO PRN ×2 (04:36→18:26)
[2016-05-15] MEDS: Insulin LISPRO 300 UNITS/3 ML VIAL SQ SCH ×4 (08:27→21:40)
[2016-05-15 08:55] LABS: Basophils % 0.3 %; Hemoglobin 8.1 g/dL (12.9-16.9); Immature Granulocytes % 0.8 % (0-4); Mean Corpuscular Hemoglobin 28.1 pg (28.0-33.3); Red Blood Count 2.88 M/mcL (4.19-5.50)
[2016-05-15 08:57] LABS: Calcium 8.5 mg/dL (8.6-10.8); Eosinophils # 0.3 K/mcL (0.0-0.6); Eosinophils % 2.2 %; Hematocrit 24.4 % (37.5-50.1); Immature Platelets 2.6 % (1.1-6.1); Lymphocytes # 0.7 K/mcL (0.6-4.6); Lymphocytes % 5.9 %; Magnesium 2.1 mg/dL (1.6-2.6); Mean Corpuscular HGB Conc 33.2 g/dL (31.6-35.5); Mean Corpuscular Volume 84.7 fL (83.0-100.0); Mean Platelet Volume 9.6 fL (9.4-12.4); Monocytes % 17.5 %; Neutrophils # 8.4 K/mcL (1.6-8.9); Phosphorous 3.4 mg/dL (2.3-4.7); Platelet Count 95 K/mcL (140-400); Potassium 4.9 mEq/L (3.5-4.5); Red Cell Distribution Width 15.8 % (11.5-14.5); Segmented Neutrophils % 73.3 %
[2016-05-15] MEDS: Lactulose Oral Soln 20 GM/30 ML UDC PO SCH ×4 (08:57→21:40)
[2016-05-15] MEDS: RIFAXIMIN 200 MG PO SCH ×2 (08:57→21:39)
[2016-05-15] MEDS: *HR* Insulin Regular U-500 500 UNIT/ML SQ SCH ×2 (08:57→17:20)
[2016-05-15 09:16] LABS: Platelet Estimate Slight Decrease (Normal)
[2016-05-15] MEDS: Furosemide 40 MG TABLET PO SCH ×2 (10:14→17:20)
[2016-05-15] MEDS: Nystatin POWDER 30 GM BOTTLE TP SCH ×3 (10:14→21:41)
--- NOTE | 2016-05-15 10:55 | Internal Med Progress Note ---
Date of Encounter: 05/15/16 Time of Encounter: 10:52 - Assessment and plan (1) Venous stasis dermatitis of both lower extremities Current Visit: No Status: Chronic (2) Hyperosmolar nonketotic coma in diabetes Current Visit: Yes Status: Acute (3) Cirrhosis of liver Current Visit: Yes Status: Acute Qualifiers: Hepatic cirrhosis type: unspecified hepatic cirrhosis Ascites presence: with ascites Qualified Code(s): K74.60 - Unspecified cirrhosis of liver (4) DVT prophylaxis Current Visit: Yes Status: Acute (5) Ascites Current Visit: Yes Status: Acute Assessment and plan: 60 y/o male with pmh of cirrhosis, GERD, HTN, CAD admitted to the hospital with complaints of abdominal distension. Patient has significant ascitis with exam and reports having underwent paracentesis about a month ago at another facility. 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 Hep C panel pending. No features of encephalopathy or SBP at this time. empirically on cefotaxime. On lasix and aldactone. Paracentesis done 05/10 with removal of 9 l of fluid. Albumin given post procedure. No features on encephalopathy. Ascitic fluid available results negative for infection. # Leukocytosis: Likely reactive to the bleeding episode, no acute signs of infectious etiology present. Will continue to closely monitor. # RLE ulceration/bleeding: Podiatry consultation appreciated. Continue daily wound care. No surgical intervention recommended at this time. # Anemia: s/p 1 unit PRBC transfusion (05/12/16). Repeat H&H within acceptable limits. No acute bleeding reported at this time. Will continue to monitor closely and transfuse as needed. # Hyperosmolar nonketotic state secondary to uncontrolled DM: BG within acceptable limits. Continue home dose of U500 with better control of blood glucose. continue sliding scale insulin algorithm. Continue to monitor BG AC and HS. P # B/l LE swelling: In setting of volume overload, compression from ascites and chronic venous stasis. Improving. Will change to PO lasix # DVT prophylaxis: Sub Q heparin. # Scrotal edema extending to b/l UE: Urology eval appreciated. # Hypotension: Noted to be hypotensive but asymptomatic. Will continue to closely monitor Qualifiers: Ascites type: other type Qualified Code(s): R18.8 - Other ascites - Subjective Interval history: Pt seen and examined. Sitting comfortably in chair and reports of feeling better today. Reported to be severely anxious yesterday due to which Lorazepam PO prn was added. patient will be discharged to ECF-pending placement. - Constitutional Vitals: Temp Pulse Resp BP Pulse Ox 97.9 F 83 18 98/45 95 05/15/16 07:12 05/15/16 10:20 05/15/16 07:12 05/15/16 07:12 05/15/16 08:51 General appearance: Present: A&O X 3, morbidly obese, no acute distress - Head Head exam: Present: atraumatic, normocephalic - Eye Eye exam: Present: conjuntiva pink, sclera anicteric - Respiratory Respiratory exam: Present: CTAB. Absent: respiratory distress, wheezes - Cardiovascular Cardiovascular exam: Present: RRR, +S1, +S2. Absent: diastolic murmur, gallop, rubs, systolic murmur - GI/Abdominal GI/Abdominal exam: Present: distended (ascites), normal bowel sounds, soft. Absent: tenderness - Extremities Exam Extremities exam: Present: pedal edema, warm, radial pulses palpable and symetrical. Absent: calf tenderness (bilateral LE dressings intact) - Neurological Exam Neurological exam: Present: alert, oriented X3 - Psychiatric Psychiatric exam: Present: normal affect, normal mood Internal Medicine: Result - Labs CBC & Chem 7: 05/15/16 08:37 05/15/16 08:37 Labs: Short CBC 05/14/16 05/15/16 Range/Units 18:37 08:37 WBC 10.1 11.4 H (4.3-11.1) K/mcL Hgb 8.3 L 8.1 L (12.9-16.9) g/dL Hct 25.3 L 24.4 L (37.5-50.1) % Plt Count 103 L 95 L (140-400) K/mcL Neutrophils # 7.3 8.4 (1.6-8.9) K/mcL BMP 05/15/16 08:37 Sodium 122 L Potassium 4.9 H Chloride 93 L Carbon Dioxide 20 BUN 59 H Creatinine 1.55 H Glucose 130 H Calcium 8.5 L - ABG Interpretation ABG results: PT/INR, D-dimer PT 15.7 Seconds (9.4-12.1) H 05/12/16 19:04 Consult Discharge Plan - Plan Additional Instructions: Please follow up with your primary care physician within one week after your discharge from the hospital. Please follow up with Podiatry within one to two weeks after your discharge from the hospital. Please continue daily dressing changes. Wound Care instructions: Wound Care: BLE venous stasis ulcerations - cleanse daily with HCG soap and water - rinse well with water and pat dry - apply Calazime Lotion to the brown discolored skin - cover the ulcers with calcium alginate with silver (CSS-Maxorb AG) - pad with 5x9 ABDs - wrap with kerlix from toes to knees - wrap with 4" coban from toes to knees - Not too tight - change dressings daily and prn if soiled - elevated legs on pillows Closely monitor your fingerstick glucose. Adhere to a Diabetic diet. Please resume all your home medications as prescribed by your primary care physician. Referrals: Valery Wallace MD [Primary Care Provider] - Erika Dumont CNP [Advanced Practice Nurse] - 06/08/16 7:00 am Prescriptions: OxyCODONE Immed Rel [Roxicodone 5 MG] 5 mg PO Q6HR PRN #20 tablet PRN Reason: Pain
[2016-05-15] MEDS: *HR* LORazepam 0.5 MG TABLET PO PRN (21:40)
[2016-05-16 03:39] LABS: Mean Platelet Volume 10.2 fL (9.4-12.4)
[2016-05-16 03:41] LABS: Basophils % 0.1 %; Eosinophils # 0.3 K/mcL (0.0-0.6); Eosinophils % 3.2 %; Hematocrit 21.8 % (37.5-50.1); Hemoglobin 7.1 g/dL (12.9-16.9); Immature Granulocytes % 1.1 % (0-4); Immature Platelets 2.4 % (1.1-6.1); Lymphocytes # 0.6 K/mcL (0.6-4.6); Lymphocytes % 6.4 %; Mean Corpuscular HGB Conc 32.6 g/dL (31.6-35.5); Mean Corpuscular Hemoglobin 27.5 pg (28.0-33.3); Mean Corpuscular Volume 84.5 fL (83.0-100.0); Monocytes # 1.6 K/mcL (0.0-1.3); Monocytes % 17.8 %; Neutrophils # 6.2 K/mcL (1.6-8.9); Red Blood Count 2.58 M/mcL (4.19-5.50); Red Cell Distribution Width 15.9 % (11.5-14.5); Segmented Neutrophils % 71.4 %
[2016-05-16 03:45] LABS: Platelet Count 77 K/mcL (140-400)
[2016-05-16 03:49] LABS: Calcium 8.2 mg/dL (8.6-10.8); Magnesium 2.1 mg/dL (1.6-2.6)
[2016-05-16 08:24] LABS: Hematocrit 25.3 % (37.5-50.1); Hemoglobin 8.1 g/dL (12.9-16.9); Mean Corpuscular Volume 84.3 fL (83.0-100.0); Mean Platelet Volume 9.9 fL (9.4-12.4); Red Cell Distribution Width 16.1 % (11.5-14.5)
[2016-05-16 08:25] LABS: Platelet Count 94 K/mcL (140-400)
[2016-05-16] MEDS: *HR* Insulin Regular U-500 500 UNIT/ML SQ SCH ×2 (08:28→17:11)
[2016-05-16] MEDS: Lactulose Oral Soln 20 GM/30 ML UDC PO SCH ×4 (08:28→22:04)
[2016-05-16] MEDS: Furosemide 40 MG TABLET PO SCH (08:29)
[2016-05-16] MEDS: Insulin LISPRO 300 UNITS/3 ML VIAL SQ SCH ×4 (08:29→22:05)
[2016-05-16] MEDS: Nystatin POWDER 30 GM BOTTLE TP SCH ×3 (08:29→22:04)
[2016-05-16] MEDS: RIFAXIMIN 200 MG PO SCH ×2 (08:29→22:03)
--- NOTE | 2016-05-16 11:29 | Internal Med Progress Note ---
Date of Encounter: 05/16/16 Time of Encounter: 11:27 - Assessment and plan (1) Venous stasis dermatitis of both lower extremities Current Visit: No Status: Chronic (2) Hyperosmolar nonketotic coma in diabetes Current Visit: Yes Status: Acute (3) Cirrhosis of liver Current Visit: Yes Status: Acute Qualifiers: Hepatic cirrhosis type: unspecified hepatic cirrhosis Ascites presence: with ascites Qualified Code(s): K74.60 - Unspecified cirrhosis of liver (4) DVT prophylaxis Current Visit: Yes Status: Acute (5) Ascites Current Visit: Yes Status: Acute Assessment and plan: 60 y/o male with pmh of cirrhosis, GERD, HTN, CAD admitted to the hospital with complaints of abdominal distension. Patient has significant ascitis with exam and reports having underwent paracentesis about a month ago at another facility. 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 Hep C panel pending. No features of encephalopathy or SBP at this time. empirically on cefotaxime. On lasix and aldactone. Paracentesis done 05/10 with removal of 9 l of fluid. Albumin given post procedure. No features on encephalopathy. Ascitic fluid available results negative for infection. # Leukocytosis: Likely reactive to the bleeding episode, no acute signs of infectious etiology present. Will continue to closely monitor. # RLE ulceration/bleeding: Podiatry consultation appreciated. Continue daily wound care. No surgical intervention recommended at this time. # Anemia: s/p 1 unit PRBC transfusion (05/12/16). Repeat H&H within acceptable limits. No acute bleeding reported at this time. Will continue to monitor closely and transfuse as needed. # Hyperosmolar nonketotic state secondary to uncontrolled DM: BG within acceptable limits. Continue home dose of U500 with better control of blood glucose. continue sliding scale insulin algorithm. Continue to monitor BG AC and HS. P # B/l LE swelling: In setting of volume overload, compression from ascites and chronic venous stasis. Improving. Will change to PO lasix. # DVT prophylaxis: Sub Q heparin. # Scrotal edema extending to b/l UE: Urology eval appreciated. # Hypotension: Noted to be hypotensive but asymptomatic. Will continue to closely monitor. Given low BP readings, will change to Lasix PO qd Discharge pending placement Qualifiers: Ascites type: other type Qualified Code(s): R18.8 - Other ascites - Subjective Interval history: Pt seen and examined. Sitting comfortably in chair and reports of feeling better today. Noted to be hypotensive but asymptomatic, changed Lasix to PO qd. patient will be discharged to ECF-pending placement. - Constitutional Vitals: Temp Pulse Resp BP Pulse Ox 98.2 F 89 18 108/57 96 05/16/16 07:46 05/16/16 08:23 05/16/16 07:46 05/16/16 08:23 05/16/16 08:23 General appearance: Present: A&O X 3, morbidly obese, no acute distress - Head Head exam: Present: atraumatic, normocephalic - Eye Eye exam: Present: conjuntiva pink, sclera anicteric - Respiratory Respiratory exam: Present: CTAB. Absent: accessory muscle use, rales, rhonchi, wheezes - Cardiovascular Cardiovascular exam: Present: RRR, +S1, +S2. Absent: diastolic murmur, gallop, rubs, systolic murmur - GI/Abdominal GI/Abdominal exam: Present: distended (ascites), normal bowel sounds, soft, no peritoneal signs. Absent: tenderness - Extremities Exam Extremities exam: Present: pedal edema, warm, radial pulses palpable and symetrical (bilateral lower extremity edema-dressing intact on b/l LE) - Neurological Exam Neurological exam: Present: alert, oriented X3 Internal Medicine: Result - Labs CBC & Chem 7: 05/16/16 08:14 05/16/16 03:18 Labs: Short CBC 05/16/16 05/16/16 Range/Units 03:18 08:14 WBC 8.7 10.2 (4.3-11.1) K/mcL Hgb 7.1 L 8.1 L (12.9-16.9) g/dL Hct 21.8 L 25.3 L (37.5-50.1) % Plt Count 77 L 94 L (140-400) K/mcL Neutrophils # 6.2 (1.6-8.9) K/mcL BMP 05/16/16 03:18 Sodium 121 L Potassium 5.0 H Chloride 92 L Carbon Dioxide 22 BUN 66 H Creatinine 1.70 H Glucose 139 H Calcium 8.2 L - ABG Interpretation ABG results: PT/INR, D-dimer PT 15.7 Seconds (9.4-12.1) H 05/12/16 19:04 Consult Discharge Plan - Plan Instructions: Oxycodone, Rapid Release (By mouth), Diabetes Mellitus Type 2 in Adults (DC), Peripheral Vascular Disorders (DC) Additional Instructions: Please follow up with your primary care physician within one week after your discharge from the hospital. Please follow up with Podiatry within one to two weeks after your discharge from the hospital. Please continue daily dressing changes. Wound Care instructions: Wound Care: BLE venous stasis ulcerations - cleanse daily with HCG soap and water - rinse well with water and pat dry - apply Calazime Lotion to the brown discolored skin - cover the ulcers with calcium alginate with silver (CSS-Maxorb AG) - pad with 5x9 ABDs - wrap with kerlix from toes to knees - wrap with 4" coban from toes to knees - Not too tight - change dressings daily and prn if soiled - elevated legs on pillows Closely monitor your fingerstick glucose. Adhere to a Diabetic diet. Please resume all your home medications as prescribed by your primary care physician. Referrals: Valery Wallace MD [Primary Care Provider] - Erika Dumont CNP [Advanced Practice Nurse] - 06/08/16 7:00 am Prescriptions: OxyCODONE Immed Rel [Roxicodone 5 MG] 5 mg PO Q6HR PRN #20 tablet PRN Reason: Pain
[2016-05-16] MEDS: *HR* OxyCODONE Immed Rel 5 MG TABLET PO PRN (22:02)
[2016-05-17] MEDS: *HR* LORazepam 0.5 MG TABLET PO PRN ×2 (01:24→16:44)
[2016-05-17 03:39] LABS: Immature Granulocytes % 1.3 % (0-4)
[2016-05-17 03:41] LABS: Basophils % 0.2 %; Eosinophils # 0.3 K/mcL (0.0-0.6); Eosinophils % 3.4 %; Hematocrit 22.8 % (37.5-50.1); Hemoglobin 7.3 g/dL (12.9-16.9); Immature Platelets 2.9 % (1.1-6.1); Lymphocytes # 0.7 K/mcL (0.6-4.6); Lymphocytes % 7.6 %; Mean Corpuscular Hemoglobin 27.3 pg (28.0-33.3); Mean Corpuscular Volume 85.4 fL (83.0-100.0); Mean Platelet Volume 10.1 fL (9.4-12.4); Monocytes # 1.8 K/mcL (0.0-1.3); Monocytes % 19.8 %; Neutrophils # 6.2 K/mcL (1.6-8.9); Red Blood Count 2.67 M/mcL (4.19-5.50); Red Cell Distribution Width 16.2 % (11.5-14.5); Segmented Neutrophils % 67.7 %
[2016-05-17 03:52] LABS: Calcium 8.3 mg/dL (8.6-10.8); Magnesium 2.4 mg/dL (1.6-2.6); Phosphorous 4.2 mg/dL (2.3-4.7); Potassium 4.8 mEq/L (3.5-4.5)
[2016-05-17] MEDS: *HR* OxyCODONE Immed Rel 5 MG TABLET PO PRN ×3 (05:27→22:25)
[2016-05-17 05:34] LABS: Platelet Count 98 K/mcL (140-400)
[2016-05-17 05:35] LABS: Anisocytosis 1+ (Not Present)
[2016-05-17 05:37] LABS: Platelet Estimate Decreased (Normal)
[2016-05-17] MEDS: Nystatin POWDER 30 GM BOTTLE TP SCH ×3 (08:38→22:26)
[2016-05-17] MEDS: Lactulose Oral Soln 20 GM/30 ML UDC PO SCH ×4 (08:38→22:26)
[2016-05-17] MEDS: RIFAXIMIN 200 MG PO SCH ×2 (08:38→22:26)
[2016-05-17] MEDS: Furosemide 40 MG TABLET PO SCH (08:38)
[2016-05-17] MEDS: *HR* Insulin Regular U-500 500 UNIT/ML SQ SCH ×2 (08:39→16:49)
[2016-05-17] MEDS: Insulin LISPRO 300 UNITS/3 ML VIAL SQ SCH ×4 (08:39→22:27)
--- NOTE | 2016-05-17 10:58 | IR Procedure Note ---
Date of procedure: 05/17/16 Consent Obtained: Verbal consent, Written consent Timeout: Correct patient and procedure verified, Correct site verified, Time out performed, Skin prep completed Local anesthetic: Lidocaine 1% Indications: ascites Procedure Performed: paracentesis Site/Technique: RLQ Results/Findings: amount pending Estimated blood loss (cc): 1 Complications: None; Tolerated procedure well Post Procedure Treatment Plan: usual care
--- NOTE | 2016-05-17 12:08 | Internal Med Progress Note ---
Date of Encounter: 05/17/16 Time of Encounter: 11:00 - Assessment and plan (1) Venous stasis dermatitis of both lower extremities Current Visit: No Status: Chronic (2) Hyperosmolar nonketotic coma in diabetes Current Visit: Yes Status: Acute (3) Cirrhosis of liver Current Visit: Yes Status: Acute Qualifiers: Hepatic cirrhosis type: unspecified hepatic cirrhosis Ascites presence: with ascites Qualified Code(s): K74.60 - Unspecified cirrhosis of liver (4) DVT prophylaxis Current Visit: Yes Status: Acute (5) Ascites Current Visit: Yes Status: Acute Assessment and plan: 60 y/o male with pmh of cirrhosis, GERD, HTN, CAD admitted to the hospital with complaints of abdominal distension. Patient has significant ascitis with exam and reports having underwent paracentesis about a month ago at another facility. 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 No features of encephalopathy present at this time. Discharge held today due to worsening ascites. s/p Paracentesis with removal of 7.5L of fluid. Patient to receive 20g of albumin (8g/L above 5L). Likely d/c in am if ECF bed available. # Leukocytosis: resolved. Will continue to closely monitor. # RLE ulceration/bleeding: Podiatry consultation appreciated. Continue daily wound care. No surgical intervention recommended at this time. # Anemia: s/p 1 unit PRBC transfusion (05/12/16). Repeat H&H within acceptable limits. No acute bleeding reported at this time. Will continue to monitor closely and transfuse as needed. # Hyperosmolar nonketotic state secondary to uncontrolled DM: BG within acceptable limits. Continue home dose of U500 with better control of blood glucose. continue sliding scale insulin algorithm. Continue to monitor BG AC and HS. # B/l LE swelling: In setting of volume overload, compression from ascites and chronic venous stasis. Improving. Will change to PO lasix. # DVT prophylaxis: Sub Q heparin. # Scrotal edema extending to b/l UE: Urology eval appreciated. # Hypotension: Noted to be hypotensive but asymptomatic. Will continue to closely monitor. Discharge pending placement Qualifiers: Ascites type: other type Qualified Code(s): R18.8 - Other ascites - Subjective Interval history: Pt seen and examined. Resting in bed, noted to have worsening ascites for which he had paracentesis done by [facility] today (05/17/16). S/P removal of 7.5 L. patient tolerated the procedure well and reports of feeling better. Will be supplementing albumin (8g/L for every liter above 5L). - Constitutional Vitals: Temp Pulse Resp BP Pulse Ox 98.0 F 84 16 93/34 96 05/17/16 07:11 05/17/16 07:11 05/17/16 07:11 05/17/16 07:11 05/17/16 07:11 General appearance: Present: A&O X 3, morbidly obese, no acute distress - Head Head exam: Present: atraumatic, normocephalic - Eye Eye exam: Present: normal appearance, conjuntiva pink, sclera anicteric - Respiratory Respiratory exam: Present: CTAB. Absent: accessory muscle use, rales, rhonchi, wheezes - Cardiovascular Cardiovascular exam: Present: RRR, +S1, +S2. Absent: diastolic murmur, gallop, rubs, systolic murmur - GI/Abdominal GI/Abdominal exam: Present: normal bowel sounds, no peritoneal signs. Absent: guarding, tenderness - Extremities Exam Extremities exam: Present: pedal edema, warm, radial pulses palpable and symetrical. Absent: calf tenderness Additional comments: bilateral lower extremity edema, b/l LE dressing intact - Neurological Exam Neurological exam: Present: alert, oriented X3 Internal Medicine: Result - Labs CBC & Chem 7: 05/17/16 03:14 05/17/16 03:14 Labs: Short CBC 05/17/16 Range/Units 03:14 WBC 9.2 (4.3-11.1) K/mcL Hgb 7.3 L (12.9-16.9) g/dL Hct 22.8 L (37.5-50.1) % Plt Count 98 L (140-400) K/mcL Neutrophils # 6.2 (1.6-8.9) K/mcL BMP 05/17/16 03:14 Sodium 121 L Potassium 4.8 H Chloride 93 L Carbon Dioxide 20 BUN 75 H Creatinine 1.72 H Glucose 93 Calcium 8.3 L - ABG Interpretation ABG results: PT/INR, D-dimer PT 15.7 Seconds (9.4-12.1) H 05/12/16 19:04 Consult Discharge Plan - Plan Instructions: Oxycodone, Rapid Release (By mouth), Diabetes Mellitus Type 2 in Adults (DC), Peripheral Vascular Disorders (DC) Additional Instructions: Please follow up with your primary care physician within one week after your discharge from the hospital. Please follow up with Podiatry within one to two weeks after your discharge from the hospital. Please continue daily dressing changes. Wound Care instructions: Wound Care: BLE venous stasis ulcerations - cleanse daily with HCG soap and water - rinse well with water and pat dry - apply Calazime Lotion to the brown discolored skin - cover the ulcers with calcium alginate with silver (CSS-Maxorb AG) - pad with 5x9 ABDs - wrap with kerlix from toes to knees - wrap with 4" coban from toes to knees - Not too tight - change dressings daily and prn if soiled - elevated legs on pillows Closely monitor your fingerstick glucose. Adhere to a Diabetic diet. Please resume all your home medications as prescribed by your primary care physician. Referrals: Valery Wallace MD [Primary Care Provider] - Erika Dumont CNP [Advanced Practice Nurse] - 06/08/16 7:00 am Prescriptions: OxyCODONE Immed Rel [Roxicodone 5 MG] 5 mg PO Q6HR PRN #20 tablet PRN Reason: Pain
[2016-05-17] MEDS ORDERED: ALBUMIN IVPB ONE (12:12)
[2016-05-17] MEDS: *HR* Heparin 5,000 UNIT/ML VIAL SQ SCH (16:50)
[2016-05-18] MEDS: *HR* LORazepam 0.5 MG TABLET PO PRN (06:09)
[2016-05-18] MEDS: *HR* Heparin 5,000 UNIT/ML VIAL SQ SCH ×2 (06:10→17:15)
[2016-05-18] MEDS: *HR* OxyCODONE Immed Rel 5 MG TABLET PO PRN (06:10)
[2016-05-18 08:55] LABS: Basophils % 0.2 %; Lymphocytes % 5.9 %; Mean Platelet Volume 10.2 fL (9.4-12.4)
[2016-05-18] MEDS: Insulin LISPRO 300 UNITS/3 ML VIAL SQ SCH ×4 (08:56→23:35)
[2016-05-18] MEDS: Lactulose Oral Soln 20 GM/30 ML UDC PO SCH ×4 (08:56→20:08)
[2016-05-18] MEDS: Furosemide 40 MG TABLET PO SCH (08:56)
[2016-05-18] MEDS: RIFAXIMIN 200 MG PO SCH ×2 (08:56→20:08)
[2016-05-18 08:57] LABS: Eosinophils # 0.2 K/mcL (0.0-0.6); Eosinophils % 2.7 %; Hematocrit 24.3 % (37.5-50.1); Immature Granulocytes % 0.6 % (0-4); Immature Platelets 1.8 % (1.1-6.1); Lymphocytes # 0.5 K/mcL (0.6-4.6); Mean Corpuscular HGB Conc 32.9 g/dL (31.6-35.5); Mean Corpuscular Hemoglobin 27.7 pg (28.0-33.3); Mean Corpuscular Volume 84.1 fL (83.0-100.0); Monocytes # 1.1 K/mcL (0.0-1.3); Platelet Count 100 K/mcL (140-400); Red Blood Count 2.89 M/mcL (4.19-5.50); Red Cell Distribution Width 16.6 % (11.5-14.5); Segmented Neutrophils % 78.6 %
[2016-05-18] MEDS: *HR* Insulin Regular U-500 500 UNIT/ML SQ SCH ×2 (08:57→17:14)
[2016-05-18 09:07] LABS: Calcium 8.3 mg/dL (8.6-10.8); Magnesium 2.4 mg/dL (1.6-2.6); Phosphorous 4.4 mg/dL (2.3-4.7); Potassium 5.5 mEq/L (3.5-4.5)
[2016-05-18] MEDS ORDERED: 0.9 % Sodium Chloride 250 ML ONE (12:39)
[2016-05-18] MEDS: Nystatin POWDER 30 GM BOTTLE TP SCH ×3 (12:52→20:08)
--- NOTE | 2016-05-18 17:00 | Internal Med Progress Note ---
Date of Encounter: 05/18/16 Time of Encounter: 09:20 - Assessment and plan (1) Venous stasis dermatitis of both lower extremities Current Visit: No Status: Chronic (2) Hyperosmolar nonketotic coma in diabetes Current Visit: Yes Status: Acute (3) Cirrhosis of liver Current Visit: Yes Status: Acute Qualifiers: Hepatic cirrhosis type: unspecified hepatic cirrhosis Ascites presence: with ascites Qualified Code(s): K74.60 - Unspecified cirrhosis of liver (4) DVT prophylaxis Current Visit: Yes Status: Acute (5) Ascites Current Visit: Yes Status: Acute Assessment and plan: 60 y/o male with pmh of cirrhosis, GERD, HTN, CAD admitted to the hospital with complaints of abdominal distension. Patient has significant ascitis with exam and reports having underwent paracentesis about a month ago at another facility. 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 No features of encephalopathy present at this time. Discharge held today due to worsening ascites. s/p Paracentesis with removal of 7.5L of fluid. Patient received 20g of albumin (8g/L above 5L). # Leukocytosis: resolved. Will continue to closely monitor. # RLE ulceration/bleeding: Podiatry consultation appreciated. Continue daily wound care. No surgical intervention recommended at this time. # Anemia: s/p 1 unit PRBC transfusion (05/12/16). Repeat H&H within acceptable limits. No acute bleeding reported at this time. Will continue to monitor closely and transfuse as needed. # Hyperosmolar nonketotic state secondary to uncontrolled DM: BG within acceptable limits. Continue home dose of U500 with better control of blood glucose. continue sliding scale insulin algorithm. Continue to monitor BG AC and HS. # B/l LE swelling: In setting of volume overload, compression from ascites and chronic venous stasis. Improving. continue daily dressing changes as per podiatry # DVT prophylaxis: Sub Q heparin. # Hypotension: Noted to be hypotensive but asymptomatic. Will continue to closely monitor. Hold Lasix at this time. Discharge on hold due to lethargic mental status. Will discontinue ativan and hold all sedative agents. Will continue to closely monitor. Qualifiers: Ascites type: other type Qualified Code(s): R18.8 - Other ascites - Subjective Interval history: Pt seen and examined. Noted to be lethargic today, as per nursing report patient received Oxycodone and Ativan this morning and his mental status has been somnolent throughout their shift. He is arousable but lethargic, which is a change from his mental status from previous day - Constitutional Vitals: Temp Pulse Resp BP Pulse Ox 99.4 F 81 16 94/50 94 05/18/16 15:54 05/18/16 16:37 05/18/16 15:54 05/18/16 15:54 05/18/16 15:54 General appearance: Present: A&O X 3 (somnolent), morbidly obese, no acute distress - Head Head exam: Present: atraumatic, normocephalic - Eye Eye exam: Present: conjuntiva pink, sclera anicteric - Respiratory Respiratory exam: Present: CTAB. Absent: accessory muscle use, rales, rhonchi, wheezes - Cardiovascular Cardiovascular exam: Present: RRR, +S1, +S2. Absent: diastolic murmur, gallop, rubs, systolic murmur - GI/Abdominal GI/Abdominal exam: Present: normal bowel sounds, soft. Absent: tenderness - Extremities Exam Extremities exam: Present: pedal edema, warm, radial pulses palpable and symetrical. Absent: calf tenderness Additional comments: Dressing intact in b/l LE - Neurological Exam Neurological exam: Present: alert Internal Medicine: Result - Labs CBC & Chem 7: 05/18/16 08:47 05/18/16 08:47 Labs: Short CBC 05/18/16 Range/Units 08:47 WBC 8.9 (4.3-11.1) K/mcL Hgb 8.0 L (12.9-16.9) g/dL Hct 24.3 L (37.5-50.1) % Plt Count 100 L (140-400) K/mcL Neutrophils # 7.0 (1.6-8.9) K/mcL BMP 05/18/16 08:47 Sodium 122 L Potassium 5.5 H Chloride 93 L Carbon Dioxide 19 BUN 86 H Creatinine 1.82 H Glucose 141 H Calcium 8.3 L - ABG Interpretation ABG results: PT/INR, D-dimer PT 15.7 Seconds (9.4-12.1) H 05/12/16 19:04 Consult Discharge Plan - Plan Instructions: Oxycodone, Rapid Release (By mouth), Diabetes Mellitus Type 2 in Adults (DC), Peripheral Vascular Disorders (DC) Additional Instructions: Please follow up with your primary care physician within one week after your discharge from the hospital. Please follow up with Podiatry within one to two weeks after your discharge from the hospital. Please continue daily dressing changes. Wound Care instructions: Wound Care: BLE venous stasis ulcerations - cleanse daily with HCG soap and water - rinse well with water and pat dry - apply Calazime Lotion to the brown discolored skin - cover the ulcers with calcium alginate with silver (CSS-Maxorb AG) - pad with 5x9 ABDs - wrap with kerlix from toes to knees - wrap with 4" coban from toes to knees - Not too tight - change dressings daily and prn if soiled - elevated legs on pillows Closely monitor your fingerstick glucose. Adhere to a Diabetic diet. Please resume all your home medications as prescribed by your primary care physician. Referrals: Valery Wallace MD [Primary Care Provider] - Erika Dumont CNP [Advanced Practice Nurse] - 06/08/16 7:00 am Prescriptions: OxyCODONE Immed Rel [Roxicodone 5 MG] 5 mg PO Q6HR PRN #20 tablet PRN Reason: Pain
[2016-05-19 00:37] LABS: ABG Base Excess 1.7 mEq/L (-2.0 to 3.0); ABG HCO3 24.5 mEQ/L (21-27); ABG Oxygen Saturation 93 % (95-98); ABG PCO2 30 mmHg (35-45); ABG PH 7.52 pH Units (7.32-7.45); ABG PO2 60 mmHg (85-104); ABG TCO2 25.4 mEq/L (20-26); Blood Gas FiO2 21 %
--- NOTE | 2016-05-19 00:40 | Event Note ---
Date of Encounter: 05/19/16 Time of Encounter: 00:37 Called to see patient per RN concern for depressed level of consciousness. I briefly reviewed the records and came to see/assess the patient. Pt somnolent and not arousable except minimal response to painful stimuli. Glucose was 114. I ordered ABG, serum ammonia level (last one was 137), and Head CT without contrast. Vitals are stable, and he is maintaining his airway. I requested patient be kept npo.
[2016-05-19 01:21] LABS: Basophils % 0.2 %; Eosinophils % 0.2 %; Hematocrit 24.1 % (37.5-50.1); Hemoglobin 8.1 g/dL (12.9-16.9); Immature Granulocytes % 0.9 % (0-4); Lymphocytes # 0.9 K/mcL (0.6-4.6); Lymphocytes % 4.4 %; Mean Corpuscular HGB Conc 33.6 g/dL (31.6-35.5); Mean Corpuscular Hemoglobin 28.4 pg (28.0-33.3); Mean Corpuscular Volume 84.6 fL (83.0-100.0); Mean Platelet Volume 9.7 fL (9.4-12.4); Monocytes # 2.3 K/mcL (0.0-1.3); Monocytes % 11.4 %; Neutrophils # 16.6 K/mcL (1.6-8.9); Platelet Count 132 K/mcL (140-400); Red Blood Count 2.85 M/mcL (4.19-5.50); Red Cell Distribution Width 17.2 % (11.5-14.5); Segmented Neutrophils % 82.9 %
[2016-05-19 01:28] LABS: Calcium 8.5 mg/dL (8.6-10.8); Magnesium 2.8 mg/dL (1.6-2.6); Phosphorous 4.4 mg/dL (2.3-4.7)
[2016-05-19] MEDS ORDERED: Piperacillin/Tazobactam 3.375 GM in D5% in Water (Mini-Bag+) 100 ML IVPB SCH (06:00)
[2016-05-19] MEDS: *HR* Heparin 5,000 UNIT/ML VIAL SQ SCH ×2 (06:23→17:09)
[2016-05-19] MEDS ORDERED: MetroNIDAZOLE 500 MG/100 ML 500 MG/100 ML BAG IVPB SCH (08:00)
[2016-05-19] MEDS: Insulin LISPRO 300 UNITS/3 ML VIAL SQ SCH ×4 (09:07→20:54)
[2016-05-19] MEDS: *HR* Insulin Regular U-500 500 UNIT/ML SQ SCH ×2 (09:08→17:08)
[2016-05-19] MEDS: Lactulose Oral Soln 20 GM/30 ML UDC PO SCH (09:17)
[2016-05-19] MEDS: RIFAXIMIN 200 MG PO SCH ×2 (09:17→22:05)
[2016-05-19] MEDS ORDERED: Lactulose 200 GM, Sodium Chloride IRRigation 700 ML RC ONE (09:54)
[2016-05-19] MEDS ORDERED: Vancomycin 1 EACH in D5% in Water 250 ML IVPB SCH (11:00)
--- NOTE | 2016-05-19 11:06 | Palliative - Consult Note ---
Date of Encounter: 05/19/16 Time of Encounter: 11:03 - Assessment and Plan (1) Ascites Current Visit: Yes Status: Acute Assessment and plan: Thus far 16.75 L of fluid have been removed during this hospitalization. This is despite maximal medical therapy, in my opinion this patient is eligible for hospice, If desired. Plan per the hospitalist team. Qualifiers: Ascites type: other type Qualified Code(s): R18.8 - Other ascites (2) Goals of care, counseling/discussion Current Visit: Yes Status: Acute Assessment and plan: CODE STATUS is full, and came to reach family. Patient's is currently an inpatient and not able to be contacted, I am attempting to contact the patient' s son the emergency contact on the medical record. The patient does not apparently have any tips done. Believe that the patient's CODE STATUS needs to be changed to reflect the seriousness of his illness. Question regarding hospice eligibility has been raised and I believe the patient does meet hospice guidelines for eligibility if he is if he so desires. At this time the patient is not able to make any decisions and has not expressed to me one way or the other because he cannot do so. I am attempting to reach the family now to have further discussions. Out of care will continue to follow. (3) Cirrhosis of liver Current Visit: Yes Status: Acute Assessment and plan: The patient has cirrhosis of the liver which reportedly is secondary to alcohol abuse. This time the patient has rectory ascites which is required multiple paracentesis. This also causing him to have hypoalbuminemia. Is also degree of renal failure. Combination of factors makes the patient hospice eligible if he wishes to be in hospice. Qualifiers: Hepatic cirrhosis type: unspecified hepatic cirrhosis Ascites presence: with ascites Qualified Code(s): K74.60 - Unspecified cirrhosis of liver Palliative-CN HPI - Data of Consult Patient: new to practice Requesting Physician: Andreina Diego MD Primary Care Provider: Valery Wallace, - Consult Narrative Palliative Care/Comfort Measures: Palliative care Reason for consult: Goals of care, CODE STATUS History of present illness: Mr. Harding is a 60 year old male History of CHF and cirrhosis, as well as coronary artery disease hypertension. The patient has been having trouble with recurrent ascites since February of this year. Had multiple paracenteses at [facility] removing 2-1/2 L of fluid since admission here has had 2 times paracentesis with a total of 16.75 L move. This is despite so medical therapy. Patient has also elevated ammonia is which have not responded well to medication and the patient has suffered relapse with altered mental status again occurring. His altered today is unable to give me any history at all. He is poorly responsive to voice. Recent paracentesis was done on the third was 7.5 L removed. The patient is again distended. Per discussion with hospital team there have been overheard discussions with the patient had discussed possible hospice with his son in the past the question that he was asked to investigate was hospice eligibility. We see the assessment and plan, however given the overall condition and the recurrent ascites despite maximal medical therapy I believe the patient is hospice eligible if he is interested. We will have to discuss this further with his family as the patient cannot make decisions at this time. CC: Andreina Diego MD Ascites liver failure. Past Med Surg Social Fam HX - Past Medical History Medical history: arthritis, cirrhosis, CHF, coronary artery disease, diabetes, GERD, hypertension, liver disease, other Psychiatric history: anxiety, depression - Past Surgical History Surgical History: appendectomy, cholecystectomy, other - Social History Smoking Status: Former smoker Smokeless Tobacco Status: No Alcohol use: none Drug use: none Medications and Allergies Amiloride/HCTZ 5-50mg [Moduretic 5-50mg] 1 tab PO DAILY 05/08/16 [History] Furosemide [Lasix] 40 mg PO DAILY 05/08/16 [History] Insulin Regular U-500 [HumuLIN R U-500] 100 unit SQ BID 05/08/16 [History] Lactulose 20 ml PO Q6H 05/08/16 [History] Omeprazole [PriLOSEC] 40 mg PO DAILY 05/08/16 [History] Ondansetron [Zofran] 8 mg PO Q12H PRN 05/08/16 [History] Potassium Chloride [K-Tab ER] 20 meq PO DAILY 05/08/16 [History] Rifaximin [Xifaxan] 550 mg PO BID 05/08/16 [History] Spironolactone [Aldactone] 100 mg PO DAILY 05/08/16 [History] OxyCODONE Immed Rel [Roxicodone 5 MG] 5 mg PO Q6HR PRN #20 tablet 05/14/16 [Rx] Allergies Antihistamines - Alkylamine Allergy (Verified 05/08/16 11:10) Cough codeine Allergy (Verified 05/08/16 11:10) Nausea fluticasone [From Flonase] Allergy (Verified 05/08/16 11:10) Nose Bleed nitroglycerin [From Nitrostat] Allergy (Verified 05/08/16 11:10) Headache rofecoxib [From Vioxx] Allergy (Verified 05/08/16 11:10) Rash ROS unobtainable: due to mental status Palliative Care-Exam - Constitutional Vitals: Temp Pulse Resp BP Pulse Ox 97.4 F L 85 16 110/59 96 05/19/16 10:42 05/19/16 10:42 05/19/16 10:42 05/19/16 10:42 05/19/16 10:42 General appearance: Present: mild distress (The patient is not responsive well to voice. His abdomen is 3 distended a sarcoid is evident.) - Head Head Exam: Present: atraumatic, normal inspection - Eye Eye exam: Present: normal appearance Pupils: Present: irregular - ENT ENT exam: Present: mucous membranes moist - Respiratory Respiratory exam: Present: CTAB - Cardiovascular Cardiovascular exam: Present: RRR - Extremities Exam Extremities exam: Present: pedal edema. Absent: normal inspection - Neurological Exam Neurological exam: Present: altered. Absent: alert - Psychiatric Psychiatric exam: Present: agitated (Difficult to tell if the patient's actually agitated or just appears uncomfortable. Not responsive to voice.) - Skin Skin exam: Present: dry, rash (Ulcerations on the legs.), warm Internal Medicine - CN: Reslt - Labs CBC & Chem 7: 05/19/16 01:05 05/19/16 01:05 Labs: Short CBC 05/19/16 Range/Units 01:05 WBC 20.0 H D (4.3-11.1) K/mcL Hgb 8.1 L (12.9-16.9) g/dL Hct 24.1 L (37.5-50.1) % Plt Count 132 L (140-400) K/mcL Neutrophils # 16.6 H (1.6-8.9) K/mcL BMP 05/19/16 01:05 Sodium 124 L Potassium 5.0 H Chloride 95 L Carbon Dioxide 19 BUN 95 H Creatinine 2.01 H Glucose 62 L Calcium 8.5 L - ABG Interpretation ABG results: ABG ABG pH 7.52 pH Units (7.32-7.45) H 05/19/16 00:28 ABG pCO2 30 mmHg (35-45) L 05/19/16 00:28 ABG pO2 60 mmHg (85-104) L 05/19/16 00:28 ABG O2 Saturation 93 % (95-98) L 05/19/16 00:28 PT/INR, D-dimer PT 15.7 Seconds (9.4-12.1) H 05/12/16 19:04 - Impressions Impressions Head CT 05/19/16 00:19 IMPRESSION: No acute intracranial abnormality. D/ / Jose Bess MD / Jose Bess MD Interpreting Provider: Jose Bess MD Consult Discharge Plan - Plan Instructions: Oxycodone, Rapid Release (By mouth), Diabetes Mellitus Type 2 in Adults (DC), Peripheral Vascular Disorders (DC) Additional Instructions: Please follow up with your primary care physician within one week after your discharge from the hospital. Please follow up with Podiatry within one to two weeks after your discharge from the hospital. Please continue daily dressing changes. Wound Care instructions: Wound Care: BLE venous stasis ulcerations - cleanse daily with HCG soap and water - rinse well with water and pat dry - apply Calazime Lotion to the brown discolored skin - cover the ulcers with calcium alginate with silver (CSS-Maxorb AG) - pad with 5x9 ABDs - wrap with kerlix from toes to knees - wrap with 4" coban from toes to knees - Not too tight - change dressings daily and prn if soiled - elevated legs on pillows Closely monitor your fingerstick glucose. Adhere to a Diabetic diet. Please resume all your home medications as prescribed by your primary care physician. Referrals: Valery Wallace MD [Primary Care Provider] - Erika Dumont CNP [Advanced Practice Nurse] - 06/08/16 7:00 am Prescriptions: OxyCODONE Immed Rel [Roxicodone 5 MG] 5 mg PO Q6HR PRN #20 tablet PRN Reason: Pain Palliative Quality Palliative Quality: Screen for Code Status: Yes (Trying to contact family), Screen for Goals of Care: Yes (Pending contact with family), Screen for Pain: Yes, If Pain Regimen Started, Initiate Bowel Regimen: NA, Screen for Nausea/ Vomitting: Yes
[2016-05-19] MEDS: Nystatin POWDER 30 GM BOTTLE TP SCH ×3 (11:18→20:53)
[2016-05-19] MEDS ORDERED: Vancomycin 1,750 MG in D5% in Water 500 ML IVPB ONE (13:21)
--- NOTE | 2016-05-19 14:44 | Event Note ---
Date of Encounter: 05/19/16 Time of Encounter: 14:41 Multiple attempts to contact family all to no avail. Have tried multiple #'s without result. Pt clearly not able to make decisions so code status remains full Pt is hospice eligible but without anyone to accept hospice on his behalf and his inability to decide for himself he is not ready for hospice at this time
--- NOTE | 2016-05-19 15:58 | Internal Med Progress Note ---
Date of Encounter: 05/19/16 Time of Encounter: 11:55 - Assessment and plan (1) Venous stasis dermatitis of both lower extremities Current Visit: No Status: Chronic (2) Hyperosmolar nonketotic coma in diabetes Current Visit: Yes Status: Acute (3) Cirrhosis of liver Current Visit: Yes Status: Acute Qualifiers: Hepatic cirrhosis type: unspecified hepatic cirrhosis Ascites presence: with ascites Qualified Code(s): K74.60 - Unspecified cirrhosis of liver (4) DVT prophylaxis Current Visit: Yes Status: Acute (5) Ascites Current Visit: Yes Status: Acute Assessment and plan: 60 y/o male with pmh of cirrhosis, GERD, HTN, CAD admitted to the hospital with complaints of abdominal distension. Patient has significant ascitis with exam and reports having underwent paracentesis about a month ago at another facility. 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 No features of encephalopathy present at this time. Discharge held today due to worsening ascites. s/p Paracentesis with removal of 7.5L of fluid. Patient received 20g of albumin (8g/L above 5L). # Leukocytosis: Acute change in WBC noted overnight, no clear signs of infectious etiology present. Will follow up repeat blood cultures, urine cultures. CXR negative for any acute cardiopulmonary process. Will continue empiric abx at this time and closely monitor for signs of sepsis. # RLE ulceration/bleeding: Podiatry consultation appreciated. Continue daily wound care. No surgical intervention recommended at this time. # Anemia: s/p 1 unit PRBC transfusion (05/12/16). Repeat H&H within acceptable limits. No acute bleeding reported at this time. Will continue to monitor closely and transfuse as needed. # Hyperosmolar nonketotic state secondary to uncontrolled DM: BG within acceptable limits. Continue home dose of U500 with better control of blood glucose. continue sliding scale insulin algorithm. Continue to monitor BG AC and HS. # B/l LE swelling: In setting of volume overload, compression from ascites and chronic venous stasis. Improving. continue daily dressing changes as per podiatry # DVT prophylaxis: Sub Q heparin. # Hypotension: Noted to be hypotensive but asymptomatic. Will continue to closely monitor. Hold Lasix at this time. # Palliative care consulted due to worsening mental status and establishing goals of care. Given patient's condition, his prognosis is poor. Palliative care consultation appreciated. Awaiting family feed back # Acute hepatic encephalopathy: Changed Lactulose to RC and currently receiving his scheduled doses with appropriate bowel movements. Will continue to closely monitor respiratory status. Qualifiers: Ascites type: other type Qualified Code(s): R18.8 - Other ascites - Subjective Interval history: Pt seen and examined. Patient has been refusing his lactulose since yesterday which is possibly contributing to his worsening mental status. He is more awake after receiving a few doses of lactulose. He is having appropriate bowel movements as expected with the lactulose dosing. He was noted to have leukocytosis without any evidence of infection. He was empirically started on IV abx and cultures were sent. Palliative care consultation was requested given severity of disease. Dr. Epstein was unable to reach any family and patient is not at capacity to make any decisions at this time. - Constitutional Vitals: Temp Pulse Resp BP Pulse Ox 97.9 F 84 16 104/59 98 05/19/16 15:04 05/19/16 15:04 05/19/16 15:04 05/19/16 15:04 05/19/16 15:04 General appearance: Present: A&O X 1, morbidly obese, no acute distress - Head Head exam: Present: atraumatic, normocephalic - Respiratory Respiratory exam: Present: CTAB. Absent: accessory muscle use, rales, rhonchi, wheezes - Cardiovascular Cardiovascular exam: Present: RRR, +S1, +S2 - GI/Abdominal GI/Abdominal exam: Present: distended (ascites), normal bowel sounds, soft. Absent: tenderness - Extremities Exam Extremities exam: Present: pedal edema, warm, radial pulses palpable and symetrical. Absent: calf tenderness, cyanotic - Neurological Exam Neurological exam: Present: alert Internal Medicine: Result - Labs CBC & Chem 7: 05/19/16 01:05 05/19/16 01:05 Labs: Short CBC 05/19/16 Range/Units 01:05 WBC 20.0 H D (4.3-11.1) K/mcL Hgb 8.1 L (12.9-16.9) g/dL Hct 24.1 L (37.5-50.1) % Plt Count 132 L (140-400) K/mcL Neutrophils # 16.6 H (1.6-8.9) K/mcL BMP 05/19/16 01:05 Sodium 124 L Potassium 5.0 H Chloride 95 L Carbon Dioxide 19 BUN 95 H Creatinine 2.01 H Glucose 62 L Calcium 8.5 L - ABG Interpretation ABG results: ABG ABG pH 7.52 pH Units (7.32-7.45) H 05/19/16 00:28 ABG pCO2 30 mmHg (35-45) L 05/19/16 00:28 ABG pO2 60 mmHg (85-104) L 05/19/16 00:28 ABG O2 Saturation 93 % (95-98) L 05/19/16 00:28 PT/INR, D-dimer PT 15.7 Seconds (9.4-12.1) H 05/12/16 19:04 - Impressions Impressions Head CT 05/19/16 00:19 IMPRESSION: No acute intracranial abnormality. D/ / Jose Bses MD / Jose Bess MD Interpreting Provider: Jose Bess MD Chest X-Ray 05/19/16 10:23 IMPRESSION: No evidence for acute cardiopulmonary process. D/ / Siva Park MD / Siva Park MD Interpreting Provider: Siva Park MD Consult Discharge Plan - Plan Instructions: Oxycodone, Rapid Release (By mouth), Diabetes Mellitus Type 2 in Adults (DC), Peripheral Vascular Disorders (DC) Additional Instructions: Please follow up with your primary care physician within one week after your discharge from the hospital. Please follow up with Podiatry within one to two weeks after your discharge from the hospital. Please continue daily dressing changes. Wound Care instructions: Wound Care: BLE venous stasis ulcerations - cleanse daily with HCG soap and water - rinse well with water and pat dry - apply Calazime Lotion to the brown discolored skin - cover the ulcers with calcium alginate with silver (CSS-Maxorb AG) - pad with 5x9 ABDs - wrap with kerlix from toes to knees - wrap with 4" coban from toes to knees - Not too tight - change dressings daily and prn if soiled - elevated legs on pillows Closely monitor your fingerstick glucose. Adhere to a Diabetic diet. Please resume all your home medications as prescribed by your primary care physician. Referrals: Valery Wallace MD [Primary Care Provider] - Erika Dumont CNP [Advanced Practice Nurse] - 06/08/16 7:00 am Prescriptions: OxyCODONE Immed Rel [Roxicodone 5 MG] 5 mg PO Q6HR PRN #20 tablet PRN Reason: Pain
--- NOTE | 2016-05-19 17:14 | Event Note ---
Date of Encounter: 05/19/16 Time of Encounter: 17:05 spoke with pt son ([phone]) is preferred # before 4:30 He has spoken with father about code status and he states his dad has stated in the past he wishes full code. Son believes that this is still the case and therefore code status will remain full. son also states that his father has an appt at [facility] next week with liver specialist to discuss transplant. Since transplant is being considered hospice is not an option at this time. Pt's son states his father is waking up, if possible pt's son and he believes his father concurs that he would like to be transferred to [facility]. I said i would pass the request along
[2016-05-19] MEDS: Piperacillin/Tazobactam 3.375 GM in D5% in Water (Mini-Bag+) 100 ML IVPB SCH (17:30)
[2016-05-19 17:36] LABS: Bilirubin,Urine Negative (Negative); Blood,Urine Small (Negative); Clarity,Urine Cloudy (Clear); Color,Urine Yellow (Yellow); Glucose,Urine (UA) Normal (Normal); Ketones,Urine Negative (Negative); Leukocyte Esterase,Urine Small (Negative); Nitrite,Urine Negative (Negative); PH,Urine 5.5 pH Units (5.0-8.0); Protein,Urine Trace mg/dL (Neg-Trace); Specific Gravity,Urine 1.017 (1.010-1.025); Urobilinogen,Urine Normal (Normal)
[2016-05-19 17:38] LABS: Bacteria,Urine None Seen per hpf (None-Few); Hyaline Casts,Urine None Seen per lpf (None-Few); RBC,Urine 0-3 per hpf (0-3); Squamous Epithelial Cell,Urine Many per lpf (None-Few)
[2016-05-19 17:47] LABS: Yeast,Urine Few per hpf (None Seen)
[2016-05-19] MEDS ORDERED: Lactulose 200 GM, Sodium Chloride IRRigation 700 ML RC SCH (21:00)
[2016-05-20] MEDS: *HR* OxyCODONE Immed Rel 5 MG TABLET PO PRN ×2 (00:36→11:50)
[2016-05-20] MEDS: Lactulose Oral Soln 20 GM/30 ML UDC PO SCH ×2 (03:14→08:00)
[2016-05-20] MEDS: Piperacillin/Tazobactam 3.375 GM in D5% in Water (Mini-Bag+) 100 ML IVPB SCH ×2 (03:14→11:40)
[2016-05-20 06:15] LABS: Calcium 8.3 mg/dL (8.6-10.8); Magnesium 2.7 mg/dL (1.6-2.6); Phosphorous 5.4 mg/dL (2.3-4.7)
[2016-05-20 06:23] LABS: Basophils % 0.3 %; Eosinophils # 0.2 K/mcL (0.0-0.6); Eosinophils % 2.4 %; Hematocrit 22.5 % (37.5-50.1); Hemoglobin 7.4 g/dL (12.9-16.9); Immature Granulocytes % 0.9 % (0-4); Immature Platelets 2.2 % (1.1-6.1); Lymphocytes # 0.5 K/mcL (0.6-4.6); Lymphocytes % 5.6 %; Mean Corpuscular HGB Conc 32.9 g/dL (31.6-35.5); Mean Corpuscular Hemoglobin 28.1 pg (28.0-33.3); Mean Corpuscular Volume 85.6 fL (83.0-100.0); Monocytes # 1.1 K/mcL (0.0-1.3); Monocytes % 11.4 %; Neutrophils # 7.4 K/mcL (1.6-8.9); Red Blood Count 2.63 M/mcL (4.19-5.50); Red Cell Distribution Width 17.4 % (11.5-14.5); Segmented Neutrophils % 79.4 %
[2016-05-20 06:32] LABS: Platelet Count 82 K/mcL (140-400)
[2016-05-20] MEDS: *HR* Heparin 5,000 UNIT/ML VIAL SQ SCH ×2 (06:56→17:09)
[2016-05-20] MEDS: *HR* Insulin Regular U-500 500 UNIT/ML SQ SCH ×2 (07:59→17:09)
[2016-05-20] MEDS: RIFAXIMIN 200 MG PO SCH (07:59)
[2016-05-20] MEDS: Insulin LISPRO 300 UNITS/3 ML VIAL SQ SCH ×3 (08:00→17:10)
--- NOTE | 2016-05-20 09:07 | Palliative Progress Note ---
Date of Encounter: 05/20/16 Time of Encounter: 08:50 - Assessment and plan (1) Ascites Current Visit: Yes Status: Acute Assessment and plan: Has required multiple paracentesis, patient appears to be accumulating again. Land per hospitalist team. Of note appears to be on maximal medical therapy and has recurrent ascites. Qualifiers: Ascites type: other type Qualified Code(s): R18.8 - Other ascites (2) Goals of care, counseling/discussion Current Visit: Yes Status: Acute Assessment and plan: Spoke with patient's son yesterday. He and his father have discussed CODE STATUS in the past and patient wishes to be full code. Goals of care: Patient has an appointment with hepatology at [facility] Tuesday of next week. Patient and family wish to avail himself of the opportunity to discuss transplant. Since the patient wishes to at least be evaluated for transplant the patient is absolutely not hospice appropriate. I did not discuss this with them as it did not fit their goals of care. The patient cannot get a transplant and wishes to have hospice he is hospice eligible. Since the patient's CODE STATUS is now clear, as well as his goals of care palliative care will sign off. I have discussed this with the patient's hospitalist team. Of note patient requested last week to be transferred to [facility]. And when I spoke to the patient's son yesterday he again brought up the possibility of transfer to [facility] I discussed this with the hospitalist team and they are going to look into this. Really at this time, the patient's waxing and waning sensorium spite maximal medical therapy as well as lack of social cheek care here patient and family request may warrant a transfer.. (3) Cirrhosis of liver Current Visit: Yes Status: Acute Assessment and plan: Patient to see hepatology at the [facility] for possible transplant. Qualifiers: Hepatic cirrhosis type: unspecified hepatic cirrhosis Ascites presence: with ascites Qualified Code(s): K74.60 - Unspecified cirrhosis of liver - Time Spent With Patient Total time spent is greater than 50% in coordination of care (as documented) at patient's floor/unit and/or counseling patient: - Subjective Interval history: The patient is more responsive today than yesterday when the consult was done., However is still not normal frame of mind. He does answer questions haltingly with yes or no and does not appear to be in any discomfort at this time. - Constitutional Vitals: Abnormal lab results RBC 2.63 M/mcL (4.19-5.50) L 05/20/16 05:48 Hgb 7.4 g/dL (12.9-16.9) L 05/20/16 05:48 Hct 22.5 % (37.5-50.1) L 05/20/16 05:48 RDW 17.4 % (11.5-14.5) H 05/20/16 05:48 Plt Count 82 K/mcL (140-400) L 05/20/16 05:48 Lymphocytes # 0.5 K/mcL (0.6-4.6) L 05/20/16 05:48 Reactive Lymphocytes Present (Not Present) A 05/14/16 05:44 Platelet Estimate Decreased (Normal) L 05/17/16 03:14 Polychromasia 1+ (Not Present) A 05/14/16 05:44 Anisocytosis 1+ (Not Present) A 05/17/16 03:14 Microcytosis Present (Not Present) A 05/14/16 05:44 PT 15.7 Seconds (9.4-12.1) H 05/12/16 19:04 APTT 36.5 Seconds (26.0-36.0) H 05/12/16 19:04 ABG pH 7.52 pH Units (7.32-7.45) H 05/19/16 00:28 ABG pCO2 30 mmHg (35-45) L 05/19/16 00:28 ABG pO2 60 mmHg (85-104) L 05/19/16 00:28 ABG O2 Saturation 93 % (95-98) L 05/19/16 00:28 VBG pO2 55 mmHg (25-40) H 05/09/16 01:01 Sodium 126 mEq/L (136-145) L 05/20/16 05:48 Potassium 5.0 mEq/L (3.5-4.5) H 05/20/16 05:48 Chloride 95 mEq/L (98-109) L 05/20/16 05:48 BUN 104 mg/dL (8-26) H 05/20/16 05:48 Creatinine 2.03 mg/dL (0.72-1.25) H 05/20/16 05:48 Est GFR ( Amer) 41 (> 60) L 05/20/16 05:48 Est GFR (Non-Af Amer) 34 (> 60) L 05/20/16 05:48 BUN/Creatinine Ratio 51 (6-26) H 05/20/16 05:48 Glucose 216 mg/dL (70-99) H 05/20/16 05:48 POC Glucose 219 (58-89) H 05/20/16 07:38 Calculated Osmolality 301 (280-300) H 05/20/16 05:48 Calcium 8.3 mg/dL (8.6-10.8) L 05/20/16 05:48 Phosphorus 5.4 mg/dL (2.3-4.7) H 05/20/16 05:48 Magnesium 2.7 mg/dL (1.6-2.6) H 05/20/16 05:48 Total Bilirubin 2.1 mg/dL (0.2-1.2) H 05/08/16 17:40 Direct Bilirubin 1.2 mg/dL (0.0-0.5) H 05/08/16 12:03 AST 35 Units/L (5-34) H 05/08/16 17:40 Alkaline Phosphatase 168 Units/L (38-126) H 05/08/16 17:40 Ammonia 78 mcmol/L (18-72) H 05/19/16 03:14 B-Natriuretic Peptide 112 pg/mL (0-100) H 05/08/16 12:03 Albumin 2.2 g/dL (3.5-5.0) L 05/08/16 17:40 Globulin 5.0 g/dL (2.4-3.5) H 05/08/16 17:40 Albumin/Globulin Ratio 0.4 (1.1-2.2) L 05/08/16 17:40 Lipase 102 Units/L (8-78) H 05/08/16 12:03 Urine Clarity Cloudy (Clear) A 05/19/16 17:25 Urine Blood Small (Negative) H 05/19/16 17:25 Ur Leukocyte Esterase Small (Negative) H 05/19/16 17:25 Urine Microscopic WBC 5-15 per hpf (0-3) H 05/19/16 17:25 Ur Squamous Epith Cells Many per lpf (None-Few) H 05/19/16 17:25 Urine Yeast Few per hpf (None Seen) H 05/19/16 17:25 Ur Culture Indicated? YES (NO) A 05/19/16 17:25 General appearance: Present: no acute distress - Head Head exam: Present: atraumatic, normal inspection - ENT ENT exam: Present: mucous membranes moist - Respiratory Respiratory exam: Present: decreased breath sounds - Cardiovascular Cardiovascular exam: Present: RRR - GI/Abdominal GI/Abdominal exam: Present: distended, normal bowel sounds. Absent: tenderness - Extremities Exam Extremities exam: Present: pedal edema - Neurological Exam Neurological exam: Present: altered - Psychiatric Psychiatric exam: Absent: agitated, anxious - Skin Skin exam: Present: dry, warm Palliative Quality Palliative Quality: Screen for Code Status: Yes, Screen for Goals of Care: Yes, Screen for Pain: Yes, If Pain Regimen Started, Initiate Bowel Regimen: NA, Screen for Nausea/Vomitting: Yes - Labs CBC & Chem 7: 05/20/16 05:48 05/20/16 05:48 Labs: Laboratory Results - last 24 hr 05/19/16 05/19/16 05/19/16 09:11 13:09 16:29 WBC RBC Hgb Hct MCV MCH MCHC RDW Plt Count MPV Immature Gran % Seg Neutrophils % Lymphocytes % Monocytes % Eosinophils % Basophils % Neutrophils # Lymphocytes # Monocytes # Eosinophils # Basophils # Immature Plt Fraction Sodium Potassium Chloride Carbon Dioxide BUN Creatinine Est GFR ( Amer) Est GFR (Non-Af Amer) BUN/Creatinine Ratio Glucose POC Glucose 149 H 123 H 172 H Calculated Osmolality Calcium Phosphorus Magnesium Urine Color Urine Clarity Urine pH Ur Specific [place] Urine Protein Urine Glucose (UA) Urine Ketones Urine Blood Urine Nitrite Urine Bilirubin Urine Urobilinogen Ur Leukocyte Esterase Urine Microscopic RBC Urine Microscopic WBC Ur Squamous Epith Cells Urine Bacteria Hyaline Casts Urine Yeast Ur Culture Indicated? 05/19/16 05/19/16 05/20/16 17:25 20:27 05:48 WBC 9.3 D RBC 2.63 L Hgb 7.4 L Hct 22.5 L MCV 85.6 MCH 28.1 MCHC 32.9 RDW 17.4 H Plt Count 82 L MPV 10.0 Immature Gran % 0.9 Seg Neutrophils % 79.4 Lymphocytes % 5.6 Monocytes % 11.4 Eosinophils % 2.4 Basophils % 0.3 Neutrophils # 7.4 Lymphocytes # 0.5 L Monocytes # 1.1 Eosinophils # 0.2 Basophils # 0.0 Immature Plt Fraction 2.2 Sodium Potassium Chloride Carbon Dioxide BUN Creatinine Est GFR ( Amer) Est GFR (Non-Af Amer) BUN/Creatinine Ratio Glucose POC Glucose 206 H Calculated Osmolality Calcium Phosphorus Magnesium Urine Color Yellow Urine Clarity Cloudy A Urine pH 5.5 Ur Specific [place] 1.017 Urine Protein Trace Urine Glucose (UA) Normal Urine Ketones Negative Urine Blood Small H Urine Nitrite Negative Urine Bilirubin Negative Urine Urobilinogen Normal Ur Leukocyte Esterase Small H Urine Microscopic RBC 0-3 Urine Microscopic WBC 5-15 H Ur Squamous Epith Cells Many H Urine Bacteria None Seen Hyaline Casts None Seen Urine Yeast Few H Ur Culture Indicated? YES A 05/20/16 05/20/16 05:48 07:38 WBC RBC Hgb Hct MCV MCH MCHC RDW Plt Count MPV Immature Gran % Seg Neutrophils % Lymphocytes % Monocytes % Eosinophils % Basophils % Neutrophils # Lymphocytes # Monocytes # Eosinophils # Basophils # Immature Plt Fraction Sodium 126 L Potassium 5.0 H Chloride 95 L Carbon Dioxide 19 BUN 104 H Creatinine 2.03 H Est GFR ( Amer) 41 L Est GFR (Non-Af Amer) 34 L BUN/Creatinine Ratio 51 H Glucose 216 H POC Glucose 219 H Calculated Osmolality 301 H Calcium 8.3 L Phosphorus 5.4 H Magnesium 2.7 H Urine Color Urine Clarity Urine pH Ur Specific [place] Urine Protein Urine Glucose (UA) Urine Ketones Urine Blood Urine Nitrite Urine Bilirubin Urine Urobilinogen Ur Leukocyte Esterase Urine Microscopic RBC Urine Microscopic WBC Ur Squamous Epith Cells Urine Bacteria Hyaline Casts Urine Yeast Ur Culture Indicated? - Impressions Impressions Chest X-Ray 05/19/16 10:23 IMPRESSION: No evidence for acute cardiopulmonary process. D/ / Siva Park MD / Siva Park MD Interpreting Provider: Siva Park MD - ABG Interpretation ABG results: ABG ABG pH 7.52 pH Units (7.32-7.45) H 05/19/16 00:28 ABG pCO2 30 mmHg (35-45) L 05/19/16 00:28 ABG pO2 60 mmHg (85-104) L 05/19/16 00:28 ABG O2 Saturation 93 % (95-98) L 05/19/16 00:28 PT/INR, D-dimer PT 15.7 Seconds (9.4-12.1) H 05/12/16 19:04 Consult Discharge Plan - Plan Instructions: Oxycodone, Rapid Release (By mouth), Diabetes Mellitus Type 2 in Adults (DC), Peripheral Vascular Disorders (DC) Additional Instructions: Please follow up with your primary care physician within one week after your discharge from the hospital. Please follow up with Podiatry within one to two weeks after your discharge from the hospital. Please continue daily dressing changes. Wound Care instructions: Wound Care: BLE venous stasis ulcerations - cleanse daily with HCG soap and water - rinse well with water and pat dry - apply Calazime Lotion to the brown discolored skin - cover the ulcers with calcium alginate with silver (CSS-Maxorb AG) - pad with 5x9 ABDs - wrap with kerlix from toes to knees - wrap with 4" coban from toes to knees - Not too tight - change dressings daily and prn if soiled - elevated legs on pillows Closely monitor your fingerstick glucose. Adhere to a Diabetic diet. Please resume all your home medications as prescribed by your primary care physician. Referrals: Valery Wallace MD [Primary Care Provider] - Erika Dumont CNP [Advanced Practice Nurse] - 06/08/16 7:00 am Prescriptions: OxyCODONE Immed Rel [Roxicodone 5 MG] 5 mg PO Q6HR PRN #20 tablet PRN Reason: Pain
[2016-05-20] MEDS: Nystatin POWDER 30 GM BOTTLE TP SCH ×2 (10:14→17:17)
--- NOTE | 2016-05-20 12:52 | Transfer Summary ---
Date of Encounter: 05/20/16 Time of Encounter: 12:47 Transfer Discharge Sum: Diag - Discharge Diagnosis (1) Venous stasis dermatitis of both lower extremities Status: Chronic Problem details: Follow-up one week to assess swelling response to compression as well as initiate juxta lite compression garments (2) Hyperosmolar nonketotic coma in diabetes Status: Acute (3) Cirrhosis of liver Status: Acute (4) DVT prophylaxis Status: Acute (5) Ascites Status: Acute Transfer Discharge Sum: Med - Medications Active and Home Medications: Home Medications Amiloride/HCTZ 5-50mg [Moduretic 5-50mg] 1 tab PO DAILY 05/08/16 [History Confirmed 05/08/16] Furosemide [Lasix] 40 mg PO DAILY 05/08/16 [History Confirmed 05/08/16] Insulin Regular U-500 [HumuLIN R U-500] 100 unit SQ BID 05/08/16 [History Confirmed 05/08/16] Lactulose 20 ml PO Q6H 05/08/16 [History Confirmed 05/08/16] Omeprazole [PriLOSEC] 40 mg PO DAILY 05/08/16 [History Confirmed 05/08/16] Ondansetron [Zofran] 8 mg PO Q12H PRN 05/08/16 [History Confirmed 05/08/16] Potassium Chloride [K-Tab ER] 20 meq PO DAILY 05/08/16 [History Confirmed ] Rifaximin [Xifaxan] 550 mg PO BID 05/08/16 [History Confirmed 05/08/16] Spironolactone [Aldactone] 100 mg PO DAILY 05/08/16 [History Confirmed 05/08/16] OxyCODONE Immed Rel [Roxicodone 5 MG] 5 mg PO Q6HR PRN #20 tablet 05/14/16 [Rx] Active Medications Dextrose/Water (Dextrose 50% (Syg)) 25 ml IVP Q15MIN PRN PRN Reason: Hypoglycemia Stop: 11/07/16 16:30 Dextrose/Water (Dextrose 50% (Syg)) 25 ml IVP AD PRN PRN Reason: Hypoglycemia Stop: 11/08/16 02:34 Furosemide (Lasix) 40 mg PO DAILY IRENE Stop: 11/16/16 09:01 Last Admin: 05/18/16 08:56 Dose: 40 mg Glucagon (Glucagen) 1 mg IM ONCE PRN PRN Reason: Hypoglycemia Stop: 11/08/16 02:34 Glucose (Gluctose) 15 gm PO ONCE PRN PRN Reason: Hypoglycemia Stop: 11/08/16 02:34 Glucose (Gluctose) 30 gm PO ONCE PRN PRN Reason: Hypoglycemia Stop: 11/08/16 02:34 Heparin Sodium (Porcine) (Heparin) 5,000 unit SQ Q12HCO [facility] Stop: 11/08/16 06:01 Last Admin: 05/20/16 06:56 Dose: 5,000 unit Dextrose (Dextrose 5%) 1,000 mls @ 100 mls/hr IVC .Q10H PRN PRN Reason: HYPOGLYCEMIA Stop: 11/08/16 02:34 Vancomycin HCl 1 each/ (Dextrose) 250 mls @ 250 mls/hr IVPB RPHPROT [facility] Stop: 11/18/16 11:01 Piperacillin Sod/Tazobactam (Sod 3.375 gm/ Dextrose) 100 mls @ 25 mls/hr IVPB Q8H IRENE PRN Reason: Protocol Stop: 11/18/16 06:01 Last Admin: 05/20/16 11:40 Dose: 25 mls/hr Insulin Human Lispro (Humalog) 0 units SQ HS [facility] PRN Reason: Protocol Stop: 11/12/16 21:01 Last Admin: 05/19/16 20:54 Dose: Not Given Insulin Human Lispro (Humalog) 0 units SQ TIDAC [facility] PRN Reason: Protocol Stop: 11/12/16 11:31 Last Admin: 05/20/16 11:41 Dose: 4 units Insulin Human Regular (Concentrated (Humulin R U-500) 50 unit SQ BIDWM IRENE PRN Reason: Protocol Stop: 11/11/16 18:16 Last Admin: 05/20/16 07:59 Dose: 50 unit Lactulose (Lactulose) 20 gm PO BID [facility] Stop: 11/19/16 02:46 Last Admin: 05/20/16 08:00 Dose: 20 gm Naloxone HCl (Narcan) 0.4 mg IVP Q2MIN PRN PRN Reason: Opioid Reversal Stop: 11/07/16 20:03 Nystatin (Nystop) 1 appl TP TID [facility] Stop: 11/13/16 16:01 Last Admin: 05/20/16 10:14 Dose: 1 appl Ondansetron HCl (Zofran) 4 mg IVP Q8HR PRN PRN Reason: Nausea And Vomiting Stop: 11/07/16 20:03 Last Admin: 05/14/16 23:58 Dose: 4 mg Oxycodone HCl (Roxicodone) 5 mg PO Q6HR PRN PRN Reason: Pain Stop: 11/07/16 19:38 Last Admin: 05/20/16 11:50 Dose: 5 mg Rifaximin (Xifaxan) 600 mg PO BID [facility] Stop: 11/11/16 16:01 Last Admin: 05/20/16 07:59 Dose: 600 mg Spironolactone (Aldactone) 100 mg PO DAILY [facility] Stop: 11/08/16 09:01 Last Admin: 05/16/16 08:29 Dose: 100 mg Transfer Discharge Sum: Data Procedures and tests throughout hospitalization: Pending Orders 05/08/16 20:08 Consult to Wound Care [CONS] Routine 05/09/16 02:33 Hypoglycemia Treatment Orders [RC] .once Notify provider [RC] once D5% in Water [Dextrose 5%] 1,000 ml IVC 100 mls/hr Dextrose 50 % in Water (Syg) [Dextrose 50% (Syg)] 25 ml IVP AD PRN Dextrose Gel [Gluctose] 15 gm PO ONCE PRN Dextrose Gel [Gluctose] 30 gm PO ONCE PRN Glucagon, Human Recombinant [GlucaGen] 1 mg IM ONCE PRN 05/10/16 13:00 Pathologist Review, Body Fluid [BF] Routine 05/10/16 18:27 Urinary cath initate/manage [RC] Q4H 05/11/16 13:55 Wound Care [RC] daily 05/12/16 20:00 Misc. Orders Stat 05/12/16 20:01 Consult to Podiatry [CONS] Routine 05/12/16 21:00 Rifaximin [Xifaxan] 600 mg PO BID 05/13/16 00:14 OxyCODONE Immed Rel [Roxicodone] 5 mg PO Q6HR PRN 05/13/16 09:51 Consult to Occupational Therapy [CONS] Routine Consult to Physical Therapy [CONS] Routine Consult to Instructor Pilot [CONS] Routine 05/13/16 10:57 Glucose, blood poc measurement [RC] .achs Hypoglycemia Treatment Orders [RC] .once Notify provider [RC] once 05/13/16 11:30 Insulin LISPRO [HumaLOG] See Protocol SQ TIDAC 05/13/16 14:59 Consult to Urology [CONS] Routine 05/13/16 17:00 Insulin Regular U-500 [HumuLIN R U-500] 50 unit SQ BIDWM 05/13/16 21:00 Insulin LISPRO [HumaLOG] See Protocol SQ HS 05/14/16 16:00 Nystatin POWDER [Nystop] 1 appl TP TID 05/15/16 17:35 Consult to Interventional Radiology [CONS] Routine 05/17/16 09:00 Furosemide [Lasix] 40 mg PO DAILY 05/19/16 03:14 Culture,Blood [BC] Stat 05/19/16 05:28 Accucheck [Glucose, blood poc measurement] [RC] .Q6 NPO Diet 05/19/16 09:57 Consult to Palliative Care [CONS] Routine 05/19/16 10:41 Insert Rectal tube Routine 05/19/16 10:45 Villagomez to gravity PROTOCOL 05/19/16 11:00 Vancomycin [Vancocin] 1 each D5% in Water [Dextrose 5%] 250 ml IVPB RPHPROT 05/19/16 17:25 Culture,Urine [RM] Stat 05/19/16 18:00 Piperacillin/Tazobactam [Zosyn] 3.375 gm D5% in Water (Mini-Bag+) [Dextrose 5 % (Minibag+) 100 ML] 100 ml IVPB Q8H 05/20/16 02:45 Lactulose 20 gm PO BID 05/20/16 Lunch Diabetic Diet - Impressions ITS Impressions Paracentesis Ultrasound 05/10/16 16:49 IMPRESSION: Successful ultrasound guided paracentesis. D/ / Mango Cooper MD / Mango Cooper MD Interpreting Provider: Mango Cooper MD Abdomen/Pelvis CT 05/13/16 13:31 IMPRESSION: Stable CT of the abdomen and pelvis. There is cirrhosis with portal hypertension resulting in splenomegaly, large ascites, and mesenteric and retroperitoneal edema. In addition, there is anasarca with prominent scrotal edema D/ / Kike Hunt MD / Kike Hunt MD Interpreting Provider: Kike Hunt MD Paracentesis Ultrasound 05/17/16 00:00 IMPRESSION: Successful ultrasound guided paracentesis. D/ / Jesse Powell MD / Jesse Powell MD Interpreting Provider: Jesse Powell MD Head CT 05/19/16 00:19 IMPRESSION: No acute intracranial abnormality. D/ / Jose Bess MD / Jose Bess MD Interpreting Provider: Jose Bess MD Chest X-Ray 05/19/16 10:23 IMPRESSION: No evidence for acute cardiopulmonary process. D/ / Siva Park MD / Siva Park MD Interpreting Provider: Siva Park MD Transfer Discharge Sum: Prov Date of admission: 05/08/16 20:02 Primary care physician: Valery Wallace, Consults: 05/08/16 20:08 Consult to Wound Care [CONS] Routine Reason for Consult: lower extremity dermatitis Time Notified: 20:08 Call Completed: No 05/12/16 20:01 Consult to Podiatry [CONS] Routine Consulting Provider: Podiatry [facility] Reason for Consult: Right collazo wound Time Notified: 20:05 Call Completed: Yes 05/13/16 09:51 Consult to Occupational Therapy [CONS] Routine Comment: Evaluate, develop and implement POC Consult to Physical Therapy [CONS] Routine Comment: Evaluate, develop and implement POC Consult to Instructor Pilot [CONS] Routine Reason for SW Consult: Weakness. Discharge planning. 05/13/16 14:59 Consult to Urology [CONS] Routine Consulting Provider: Urology Radha Reason for Consult: scrotal swelling Call Completed: Yes 05/15/16 17:35 Consult to Interventional Radiology [CONS] Routine Consulting Provider: Radiology Interventional Cols Reason for Consult: Paracentesis/ ascites Call Completed: No 05/19/16 09:57 Consult to Palliative Care [CONS] Routine Comment: Consulting Provider: Palliative Care Radha Attending physician on discharge: Andreina Diego Discharging clinician: Andreina Diego Anticipated date of transfer: 05/20/16 Receiving physician/facility: [facility] Transfer Discharge Sum: A/P - Plan Cognitive capacity at transfer: AAO x 1 Functional capacity at transfer: bed bound Overall status at transfer: patient is not back to baseline Disposition: Transfer Other Transfer Discharge Sum: Hosp Hospital course: Mr. Harding is a 60 year old male with PMH of CHF, liver cirrhosis with recurrent ascites, DM, HTN, GERD, CAD who was admitted for hyperglycemia and worsening ascites. He was initially started on insulin drip with better control of his hyperglycemia and underwent IR guided paracentesis for his abd discomfort. He responded well to therapy however his hospital course was complicated with acute hepatic encephalopathy. He was empirically treated with IV abx, lactulose. He continued to deteriorate despite medical management. Patient has a field marketing director at [facility] for consultation of liver transplant. As per patient's family's request, [facility] was contacted for possible transfer. Dr. Hay accepted the patient and he will be transferred to [facility] today once a bed is available. Pt currently has a MELD score of 28 and will benefit from liver transplantation. Patient and family agree with the transfer. - Time Spent with Patient Total time spent providing and/or coordinating transfer services: Greater than 30 minutes Transfer Discharge Sum: Exam - Constitutional Vitals: Vital Signs Temp Pulse Resp BP Pulse Ox 05/20/16 12:01 97.6 F 78 20 105/58 96 05/20/16 08:00 97.3 F L 81 20 100/50 94 05/20/16 04:17 97.4 F L 77 26 93/54 99 05/20/16 00:24 98.5 F 86 26 89/54 99 05/20/16 00:07 85 26 99 05/19/16 21:15 85 16 94 05/19/16 20:26 97.7 F 87 16 113/59 94 05/19/16 18:00 90 96/47 05/19/16 16:00 97.9 F 89 16 95/56 98 05/19/16 15:04 97.9 F 84 16 104/59 98 Intake and Output 05/19/16 05/20/16 05/20/16 23:59 07:59 15:59 Intake Total 100 / 100 0 / 0 100 / 100 Output Total 375 / 375 1000 / 1000 Balance -275 / -275 -1000 / -1000 100 / 100 Intake: IV Fluids 100 / 100 100 / 100 Zosyn 3.375 GM In 100 / 100 100 / 100 Dextrose 5% (Minibag+) 100 ML 100 ML @ 25 mls/hr IVPB Q8H [facility] Rx#: [id number] Oral 0 / 0 0 / 0 Output: Catheter 375 / 375 1000 / 1000 Other: Meal NPO Stool Size Moderate Moderate Stool Consistency loose loose liquid liquid Stool Characteristics Tarry Stool Color Brown Brown Black Black Weight 111.7 kg Blood Glucose* 206 219 150 Patient Weight 05/20/16 23:59 Weight 111.7 kg General appearance: disheveled, obese - Head Head exam: Present: atraumatic, normocephalic - Eye Eye exam: Present: scleral icterus, conjuntiva pink - Respiratory Respiratory exam: Present: CTAB. Absent: respiratory distress, wheezes, tachypnea - Cardiovascular Cardiovascular exam: Present: RRR, +S1, +S2 - GI/Abdominal GI/Abdominal exam: Present: distended (ascites), normal bowel sounds, soft. Absent: tenderness - Extremities Exam Extremities exam: Present: pedal edema. Absent: calf tenderness Additional comments: bilateral LE edema
--- NOTE | 2016-05-20 13:21 | Electrocardiograph Report ---
[place] [id number] Test Date: 2016-05-18 Pat Name: Adal Harding Department: 110 Room: 2N13 Gender: Hot Shot: : 1955 Requested By: Andreina Diego Order Number: [id number] Reading MD: Willie Mccallum MD Measurements Intervals [place] Rate: 82 P: 20 [place]: 204 QRS: 28 QRSD: 105 T: 30 QT: 379 QTc: 418 Interpretive Statements SINUS RHYTHM Electronically Signed On 05-20-2016 13:19:43 EDT by Willie Mccallum MD
[2016-05-20 16:25] VITALS: BP 105/63
[2016-05-20] MEDS ORDERED: Aminoglycoside Consult 1 EACH MC ONE (18:36)
== END 2016-05-20 18:37 | disposition other institution (70) | DRG 264 ==
LOC: 2NNU 11:08 → EMEROO 11:08 → 2NNU 16:37 → SUATTDRO 20:02
PROVIDERS: ADMIT Nurse Practitioner Family; ATTEND Internal Medicine